=== PATIENT | female | born 1955 | race Caucasian/White ===

== ENCOUNTER 2017-06-13 12:47 | Outpatient (CLI) | payer OTHER ==
[~2017-06-13 12:47] MED LIST: GADOBUTROL 10 MMOL/10 ML VIAL ONE
[2017-06-13 13:15] LABS: CREATININE 0.9 mg/dL (0.4-1.0)
[2017-06-13] MEDS ORDERED: GADOBUTROL 10 MMOL/10 ML VIAL IVP ONE (14:22)
--- NOTE | 2017-06-13 15:20 | MRI Report ---
EXAM: MRI LUMBAR SPINE WITHOUT AND WITH CONTRAST EXAM DATE: 06/13/2017 02:53 PM. CLINICAL HISTORY: CERVICAL PAIN HX OF MASS, LUMBAR SPINE PAIN. COMPARISONS: None. TECHNIQUE: Multiplanar, multisequence T1-weighted and fluid-sensitive sequences of the lumbar spine f rom T12 to S1 before and after administration of intravenous contrast. IV contrast: 8 cc gadavist adm inistered, 2 cc wasted. Other: None. FINDINGS: Spinal Cord: The conus terminates at L1. No signal abnormality in the visualized spinal cord. Alignment: Normal. No scoliosis or spondylolisthesis. Bone Marrow: Transitional lumbosacral vertebra will be considered S1 with residual S1-S2 disk and ap pears fused to sacrum. No fracture or marrow edema. No abnormal bony enhancement. Disk Levels/Facets: T12-L1: Unremarkable. L1-L2: Small right paracentral protrusion indents sac but does not cause significant nerve root retro displacement or stenosis. Mild facet arthropathy. No foraminal stenoses. L2-L3: Small left paracentral protrusion with annular enhancement indents thecal sac with mild left L 3 retrodisplacement. Mild bilateral facet arthropathy. Mild left foraminal stenosis. L3-L4: Mild bilateral facet arthropathy. Minimal disk bulge. No stenosis. L4-L5: Mild disk bulge. T2 hyperintense posterior annular fissure with mild enhancement. Mild bilater al facet arthropathy. No central stenosis. [id number] bilateral foraminal stenoses. L5-S1: Mild disk bulge. Moderate bilateral facet arthropathy. Moderate left foraminal stenosis. Spinal Canal: No enhancing masses within the spinal canal. No epidural abscess. Musculature: Normal. No edema, abnormal enhancement, or fatty atrophy. Other: The visualized pelvic cavity is unremarkable. IMPRESSION: 1. Multilevel degenerative disk disease and facet arthropathy. 2. Small posterior annular fissures with enhancement at L2-L3 and L4-L5. 3. Small protrusions, right paracentral L1-L2 and left paracentral L2-L3. Mild left L3 retrodisplacem ent of the L2-L3 disk level. 4. Mild to moderate bilateral L4-L5 foraminal stenoses and a moderate left L5-S1 foraminal stenosis. Comment: The following findings are so common in adults without low back pain that while we report th eir presence, they must be interpreted with caution and in the context of the clinical situation. (Re ingrid Sanchez et al, Spine 2001) Prevalence of findings in patients without low back pain: Disk degeneration (any evidence): 92% Disk desiccation/T2 signal loss: 83% Disk height loss: 56% Disk bulge: 64% Disk protrusion: 32% Annular tear/high intensity zone: 38% [facility] Referring Provider Line: [phone] SITE ID: [id number]
--- NOTE | 2017-06-17 17:03 | MRI Report ---
EXAM: MRI CERVICAL SPINE WITHOUT AND WITH CONTRAST EXAM DATE: 06/13/2017 02:48 PM. CLINICAL HISTORY: Cervical pain, history of mass. Lumbar spine pain. COMPARISON: Accompanying MRI lumbar spine. There is a prior CT soft tissue neck exam from 02/10/2016. TECHNIQUE: Multiplanar, multisequence T1-weighted and fluid-sensitive sequences of the cervical spine before and after administration of intravenous contrast. IV contrast: 8 cc Gadavist given intravenou sly. Other: None. Findings: Relevant images are indicated (image number, series number). Again seen is a intradural extramedullary mass within the cervical canal at the C2-C3 level, seen pre viously is partially calcified hyperdense mass, on the MRI study this mass demonstrates homogenous en hancement (5, 901; 21, 1001) and measures 0.8 x 1.4 x 1.6 cm AP by transverse by sagittal, effaces th e left lateral recess, produces moderate, marked focal canal stenosis, appears to extend at least par tially into the left foraminal space. Previously, maximum dimension of the mass was at least 1.6 cm c raniocaudal, similar to the current study. No other masses are seen. There is no abnormal cervical co rd signal or suspicious marrow lesion. There are normal expected vascular flow voids of the partly visualized bilateral vertebral arteries. Limited evaluation posterior cranial fossa contents are unremarkable, circular tonsils are normally p ositioned. C1-C2: Including a lateral occipital, lateral axial articulation demonstrates no significant canal st enosis. C2-C3: Mild disk desiccation, posterior annular disk thinning. Again seen intradural extramedullary m ass posterior left parasagittal as described above. Moderate to marked canal stenosis, significant ef facement of the left foraminal space. No apparent significant right neural foraminal narrowing. C3-C4: Mild disk desiccation, minimal posterior disk bulge. Mild canal stenosis. Uncovertebral joint, posterior facet hypertrophic change with mild left, mild right neural foraminal narrowing. C4-C5: Moderate disk degenerative change, posterior broad-based disk osteophyte complex accentuated a t the foraminal spaces bilaterally. Moderate to marked canal stenosis. Uncovertebral joint, posterior facet hypertrophic change with moderate degenerative bilateral neural foramina narrowing right worse than left. C5-C6: Moderate disk degenerative change, small posterior broad-based disk osteophyte complex, modera te to marked canal stenosis. There is uncovertebral joint, posterior facet hypertrophic change with m oderate degenerative bilateral neural foramina narrowing. C6-C7: Mild to moderate disk degenerative change, left posterior parasagittal disk protrusion (6, 301 ), measures 0.4 x 0.6 x 0.6 cm AP by sagittal by transverse. There is partial effacement of the left lateral recess. There is at least moderate canal stenosis. There is uncovertebral joint, posterior fa cet hypertrophic change with moderate left, mild right neural foramina narrowing. C7-T1 through T1-T2, partly seen T2-T3 levels demonstrate only mild disk desiccation. Impressions: 1. Redemonstration of C2-C3 left posterior parasagittal intradural extra medullary mass, most likely representing meningioma, similar in size, appearance compared with CT soft tissue neck study 02/10/20 16, Max dimension 1.6 cm described, produces moderate marked focal canal stenosis as well as effaceme nt of the left lateral recess, may contribute a left C3 radiculopathy. No abnormal cervical cord sign al. Superimposed multilevel cervical spondylosis, pertinent degenerative levels below. 2. C3-C4: Mild degenerative canal stenosis. 3. C4-C5: Moderate to marked degenerative canal stenosis, moderate degenerative bilateral neural fora stephon narrowing right worse than left, may contribute a bilateral C5 radiculopathy. 4. C5-C6: Moderate to marked degenerative canal stenosis, moderate degenerative bilateral neural fora stephon narrowing may contribute a bilateral C6 radiculopathy. 5. C6-C7: Posterior left parasagittal disk protrusion, produces moderate canal stenosis, moderate deg enerative left neural foramina narrowing may contribute a left C7 radiculopathy. 6. Milder or no significant degenerative changes at the remaining cervical, upper thoracic spine leve ls as detailed. [facility] Referring Provider Line: [phone] SITE ID: [id number]
== END 2017-06-13 12:48 | disposition home or self-care (01) ==
LOC: DI 12:47
PROVIDERS: ATTEND Nurse Practitioner Family
DX: M51.26 Other intervertebral disc displacement, lumbar region (principal); M51.36 Other intervertebral disc degeneration, lumbar region; M47.896 Other spondylosis, lumbar region; M43.16 Spondylolisthesis, lumbar region; M50.31 Other cervical disc degeneration, high cervical region; M50.223 Other cervical disc displacement at C6-C7 level; M47.892 Other spondylosis, cervical region; M51.34 Other intervertebral disc degeneration, thoracic region
CPT/HCPCS: 36415; 72156; 72158; 82565; A9585

== ENCOUNTER 2017-08-14 15:12 | Outpatient (CLI) | payer OTHER ==
--- NOTE | 2017-08-14 23:58 | XRAY Report ---
EXAM: RIGHT TOE RADIOGRAPHY EXAM DATE: 08/14/2017 03:39 PM. CLINICAL HISTORY: RT GREAT TOE PAIN. COMPARISON: None. TECHNIQUE: 3 views. FINDINGS: Bones: Normal. No fracture or bone lesion. Joints: Mild right first metatarsophalangeal joint space narrowing as seen with mild osteoarthritis. No dislocation. Soft Tissues: Unremarkable. IMPRESSION: 1. No evidence for acute fracture. 2. Mild right first metatarsophalangeal osteoarthritis. [facility] Referring Provider Line: [phone] SITE ID: [id number]
== END 2017-08-14 15:13 | disposition home or self-care (01) ==
LOC: DI.S 15:12
PROVIDERS: ATTEND Nurse Practitioner Family
DX: M19.071 Primary osteoarthritis, right ankle and foot (principal)
CPT/HCPCS: 73660

== ENCOUNTER 2017-08-14 15:13 | Outpatient (CLI) | payer OTHER ==
--- NOTE | 2017-08-20 11:17 | Mammography Report ---
DIGITAL BILATERAL SCREENING MAMMOGRAM: 08/14/2017 CLINICAL INDICATION: A 62-year old with history of benign aspiration, for screening. COMPARISON: 03/2016, 03/2008. TECHNIQUE: Real-time scanning was performed with development representative static images obtained. FINDINGS: The breasts demonstrate scattered fibroglandular densities bilaterally. Coarse, typically benign calcifications are present. No suspicious masses, clustered microcalcifications, or regions of architectural distortion are identified. IMPRESSION: Benign findings. RECOMMENDATIONS: Routine annual screening unless otherwise clinically indicated. BIRADS 2 Benign findings STANDARD QUALIFYING STATEMENTS 1. This examination was reviewd with the aid of computer-Aided Detection (CAD). 2. A negative or benign imaging report should not delay biopsy if clinically suspicious findings are present. Consider surgical consultation if warranted. More than 5% of cancers are not identified by imaging. 3. Dense breasts may obscure an underlying neoplasm. TD: 08/15/2017 14:30 [email or web address]
== END 2017-08-14 15:14 | disposition home or self-care (01) ==
LOC: DI.S 15:13
PROVIDERS: ATTEND Nurse Practitioner Family
DX: Z12.31 Encounter for screening mammogram for malignant neoplasm of breast (principal)
CPT/HCPCS: 77067

== ENCOUNTER 2018-01-28 12:31 | Outpatient (CLI) | payer OTHER | END 2018-01-28 12:32 | disposition critical access hospital (66) | LOC: EMS 12:31 | PROVIDERS: ATTEND Surgery | DX: R41.82 Altered mental status, unspecified (principal); R26.81 Unsteadiness on feet | CPT/HCPCS: A0425; A0429 ==

== ENCOUNTER 2018-01-28 13:16 | Emergency (ER) | payer OTHER ==
[2018-01-28 13:54] LABS: BASOPHILS # (AUTO) 0.1 10^3/uL (0.0-0.1); BASOPHILS % (AUTO) 0.8 %; EOSINOPHILS # (AUTO) 0.1 10^3/uL (0.0-0.7); EOSINOPHILS % (AUTO) 0.9 %; HGB - HEMOGLOBIN 14.7 g/dL (12.0-16.0); LYMPHOCYTES # (AUTO) 2.1 10^3/uL (1.5-3.5); LYMPHOCYTES % (AUTO) 19.1 %; MEAN CORPUSCULAR HEMOGLOBIN 31.8 pg (27.0-31.0); MEAN CORPUSCULAR HGB CONC 33.1 g/dL (32.0-36.0); MEAN CORPUSCULAR VOLUME 95.8 fL (81.0-99.0); MEAN PLATELET VOLUME 7.6 fL (7.9-10.8); MONOCYTES # (AUTO) 0.9 10^3/uL (0.0-1.0); MONOCYTES % (AUTO) 7.8 %; NEUTROPHILS # (AUTO) 7.9 10^3/uL (1.5-6.6); NEUTROPHILS % (AUTO) 71.4 %; PLT - PLATELET COUNT 247 10^3/uL (130-450); RED BLOOD COUNT 4.63 10^6/uL (4.20-5.40); RED CELL DISTRIBUTION WIDTH 12.9 % (12.0-15.0)
[2018-01-28 14:03] LABS: ALBUMIN 4.4 g/dL (3.2-5.5); ALBUMIN/GLOBULIN RATIO 1.5 (1.0-2.2); ALKALINE PHOSPHATASE 71 IU/L (42-121); ALT ALANINE AMINOTRANSFERASE 15 IU/L (10-60); AST ASPARTATE AMINOTRANSFERASE 17 IU/L (10-42); BILIRUBIN,TOTAL 0.6 mg/dL (0.2-1.0); BUN - BLOOD UREA NITROGEN 15 mg/dL (6-20); CARBON DIOXIDE - CO2 29 mmol/L (21-32); CHLORIDE 103 mmol/L (101-111); CREATININE 0.8 mg/dL (0.4-1.0); GFR - MDRD 73 (>89); GLUCOSE 100 mg/dL (70-100); LIPASE 35 U/L (22-51); SALICYLATE < 6.0 mg/dL; SODIUM 138 mmol/L (135-145); TOTAL PROTEIN 7.4 g/dL (6.7-8.2)
[2018-01-28 14:04] LABS: ACETAMINOPHEN < 10 ug/mL (10-30)
--- NOTE | 2018-01-28 14:14 | ED Physician Documentation ---
History of Present Illness - Stated complaint Stated Complaint: AMS - Chief complaint Chief Complaint: MHE - Additonal information Additional information: pt referred to ED by PMD and her counselor 2/2 AMS and visual hallucinations was driving to pharmacy and developed visual hallucinations described as "a detailed movie in front of my eyes" "a colored woven map" and "shifting colors" no aud hallucinations also had some muscle tesnion / tremors noted by counselor no hx of same except for one time after some sort of drug use as a teenager takes TBD for chronic pain 2/2 spinal tumor - got a new TBD fill and just took first pill from that bottle today prior to sx no EtOh/wdrawal no drugs was en route to pharm for xanax refill when this occured - but not out of xanax no missed doses no fever no BARBOSA no [employer]VOCATE no CP no AP no cough NVD sx are improving Review of Systems Constitutional: denies: Fever, Chills Cardiac: denies: Chest pain / pressure Respiratory: denies: Dyspnea GI: denies: Abdominal Pain, Nausea, Vomiting, Diarrhea Musculoskeletal: denies: Neck pain Neurologic: denies: Headache Psychiatric: reports: Hallucinations Immunocompromised: denies: Immunocompromised PD PAST MEDICAL HISTORY - Past Medical History Cardiovascular: High cholesterol GI: GERD Psych: Depression - Past Surgical History Past Surgical History: Yes Ortho: Knee replacement - Present Medications Home Medications: Ambulatory Orders Medication Instructions Recorded Confirmed Omeprazole [Prilosec] 40 mg PO DAILY 05/22/13 08/28/16 Simvastatin [Zocor] 20 mg PO HS 05/22/13 08/28/16 Trazodone HCl 300 mg PO HS 05/22/13 08/28/16 Venlafaxine ER [Effexor ER] 300 mg PO DAILY 05/22/13 08/28/16 Albuterol Sulfate [Proair Hfa 1 inh INH BID 02/11/16 08/28/16 Inhaler] Docusate Sodium 250Mg Capsule 2 tab PO DAILY 02/11/16 08/28/16 [Colace] Alprazolam [Xanax] 1 mg PO DAILY 01/28/18 01/28/18 - Allergies Allergies/Adverse Reactions: Allergies Allergy/AdvReac Type Severity Reaction Status Date / Time citalopram Allergy Respiratory Verified 01/28/18 13:27 topiramate [From Topamax] Allergy Respiratory Verified 01/28/18 13:27 Sulfa (Sulfonamide AdvReac Nausea Verified 01/28/18 13:27 Antibiotics) - Social History Does the pt smoke?: Yes Smoking Status: Current every day smoker Does the pt drink ETOH?: No Does the pt have substance abuse?: No - Immunizations Immunizations are current?: No Immunizations: TDAP >10years/unknown PD ED PE NORMAL - Vitals Vital signs reviewed: Yes - General General: Alert and oriented X 3 - HEENT HEENT: PERRL - Neck Neck: Supple, no meningeal sign - Cardiac Cardiac: RRR - Respiratory Respiratory: No respiratory distress - Abdomen Abdomen: Soft, Non tender - Neuro Neuro: Alert and oriented X 3, special events assistant 2-12 intact, No motor deficit, No sensory deficit, Normal speech Eye Opening: Spontaneous Motor: Obeys Commands Verbal: Oriented GCS Score: 15 Results - Vitals Vitals: Vital Signs - 24 hr 01/28/18 01/28/18 13:18 16:08 Temperature 36.4 C L Heart Rate 73 86 Respiratory 20 16 Rate Blood Pressure 153/72 H 116/74 O2 Saturation 98 98 Oxygen O2 Source Room air - Labs Labs: Laboratory Tests 01/28/18 01/28/18 01/28/18 13:44 13:44 14:04 WBC 11.0 H RBC 4.63 Hgb 14.7 Hct 44.4 MCV 95.8 MCH 31.8 H MCHC 33.1 RDW 12.9 Plt Count 247 MPV 7.6 L Neut # 7.9 H Lymph # 2.1 Christian # 0.9 Eos # 0.1 Baso # 0.1 Absolute Nucleated RBC 0.00 Nucleated RBC % 0.0 Sodium 138 Potassium 3.8 Chloride 103 Carbon Dioxide 29 Anion Gap 6.0 BUN 15 Creatinine 0.8 Estimated GFR (MDRD) 73 L Glucose 100 Calcium 9.0 Total Bilirubin 0.6 AST 17 ALT 15 Alkaline Phosphatase 71 Ammonia 9.0 Total Protein 7.4 Albumin 4.4 Globulin 3.0 Albumin/Globulin Ratio 1.5 Lipase 35 Urine Color Urine Clarity Urine pH Ur Specific [place] Urine Protein Urine Glucose (UA) Urine Ketones Urine Occult Blood Urine Nitrite Urine Bilirubin Urine Urobilinogen Ur Leukocyte Esterase Ur Microscopic Review Urine Culture Comments Salicylates < 6.0 Urine Opiates Screen Ur Oxycodone Screen Urine Methadone Screen Ur Propoxyphene Screen Acetaminophen < 10 L Ur Barbiturates Screen Ur Tricyclics Screen Ur Phencyclidine Scrn Ur Amphetamine Screen U Methamphetamines Scrn U Benzodiazepines Scrn Urine Cocaine Screen U Cannabinoids Screen Ethyl Alcohol < 5.0 01/28/18 14:34 WBC RBC Hgb Hct MCV MCH MCHC RDW Plt Count MPV Neut # Lymph # Christian # Eos # Baso # Absolute Nucleated RBC Nucleated RBC % Sodium Potassium Chloride Carbon Dioxide Anion Gap BUN Creatinine Estimated GFR (MDRD) Glucose Calcium Total Bilirubin AST ALT Alkaline Phosphatase Ammonia Total Protein Albumin Globulin Albumin/Globulin Ratio Lipase Urine Color YELLOW Urine Clarity CLEAR Urine pH 5.5 Ur Specific [place] 1.010 Urine Protein NEGATIVE Urine Glucose (UA) NEGATIVE Urine Ketones NEGATIVE Urine Occult Blood NEGATIVE Urine Nitrite NEGATIVE Urine Bilirubin NEGATIVE Urine Urobilinogen 0.2 (NORMAL) Ur Leukocyte Esterase NEGATIVE Ur Microscopic Review NOT INDICATED Urine Culture Comments NOT INDICATED Salicylates Urine Opiates Screen NEGATIVE Ur Oxycodone Screen NEGATIVE Urine Methadone Screen NEGATIVE Ur Propoxyphene Screen NEGATIVE Acetaminophen Ur Barbiturates Screen NEGATIVE Ur Tricyclics Screen NEGATIVE Ur Phencyclidine Scrn NEGATIVE Ur Amphetamine Screen NEGATIVE U Methamphetamines Scrn NEGATIVE U Benzodiazepines Scrn POSITIVE H Urine Cocaine Screen NEGATIVE U Cannabinoids Screen POSITIVE H Ethyl Alcohol - Rads (name of study) [facility] Radiology: See rad report (no acute) Departure - Departure Disposition: 01 Home, Self Care Clinical Impression: Mental status alteration Qualifiers: Altered mental status type: transient alteration of awareness Qualified Code(s) : R40.4 - Transient alteration of awareness Adverse drug effect Qualifiers: Encounter type: initial encounter Qualified Code(s): T88.7XXA - Unspecified adverse effect of drug or medicament, initial encounter Condition: Good Comments: Your CT scan and labs were all fine. It is possible that your symptoms were a reaction the the new CBD capsules you took this morning. Since you are doing better now, i think it is safe for your to go home. Please follow up with your PMD for a recheck this week. Return if worse again
[2018-01-28 14:36] LABS: MUDS CUTOFF CONCENTRATIONS CUTOFF CONC BELOW:
--- NOTE | 2018-01-28 14:41 | CT Report ---
EXAM: CT HEAD EXAM DATE: 01/28/2018 02:32 PM. CLINICAL HISTORY: Confusion COMPARISON: None. TECHNIQUE: Multiaxial CT images were obtained from the foramen magnum to the vertex. Reformats: Coron al. IV contrast: None. In accordance with CT protocol optimization, one or more of the following dose reduction techniques w ere utilized for this exam: automated exposure control, adjustment of mA and/or KV based on patient s ize, or use of iterative reconstructive technique. FINDINGS: Parenchyma: No intraparenchymal hemorrhage. No evidence of mass, midline shift, or CT findings of inf arction. Diallo-white differentiation is distinct. Extraaxial Spaces: Normal for age. No subdural or epidural collections identified. Ventricles: Normal in size and position. Sinuses and Orbits: Imaged paranasal sinuses, orbits, and mastoids show no significant abnormality. Bones: No evidence of fracture or calvarial defect. Other: None. IMPRESSION: No acute intracranial CT abnormality. [facility] Referring Provider Line: [phone] SITE ID: [id number]
[2018-01-28 14:52] LABS: BILIRUBIN,URINE NEGATIVE (NEGATIVE); GLUCOSE, URINE (UA) NEGATIVE (NEGATIVE); KETONES,URINE (UA) NEGATIVE (NEGATIVE); LEUKOCYTE ESTERASE, URINE NEGATIVE (NEGATIVE); NITRITE,URINE NEGATIVE (NEGATIVE); OCCULT BLOOD,URINE NEGATIVE (NEGATIVE); PH,URINE 5.5 PH (5.0-7.5); PROTEIN,URINE NEGATIVE (NEGATIVE); UROBILINOGEN,URINE 0.2 (NORMAL) E.U./dL (NORMAL)
[2018-01-28 14:58] LABS: CLARITY,URINE CLEAR (CLEAR)
[2018-01-28 15:04] LABS: AMPHETAMINE SCREEN,URINE NEGATIVE (NEGATIVE); BENZODIAZEPINES SCREEN, URINE POSITIVE (NEGATIVE); COCAINE SCREEN URINE NEGATIVE (NEGATIVE); METHADONE SCREEN, URINE NEGATIVE (NEGATIVE); METHAMPHETAMINES SCREEN, URINE NEGATIVE (NEGATIVE); OPIATE SCREEN, URINE NEGATIVE (NEGATIVE); OXYCODONE SCREEN, URINE NEGATIVE (NEGATIVE); PROPOXYPHENE SCREEN, URINE NEGATIVE (NEGATIVE); TRICYCLIC ANTIDEPRESSANT,URINE NEGATIVE (NEGATIVE)
[2018-01-28 16:09] VITALS: BP 116/74
== END 2018-01-28 16:47 | disposition home or self-care (01) ==
LOC: EDUNIT# → ED 13:16
DX: R40.4 Transient alteration of awareness (principal); T50.905A Adverse effect of unspecified drugs, medicaments and biological substances, initial encounter; E78.00 Pure hypercholesterolemia, unspecified; Z96.659 Presence of unspecified artificial knee joint
CPT/HCPCS: 36415; 70450; 80053; 80306; 80307; 80320; 80329; 81001; 81003; 82140; 83690; 85025; 87086; 99283

== ENCOUNTER 2018-05-22 07:20 | Outpatient (CLI) | payer OTHER ==
--- NOTE | 2018-05-22 13:52 | XRAY Report ---
Reason: Right Shoulder pain Procedure Date: 05/22/2018 Accession Number: [id number] / [id number] Procedure: XR - Shoulder 3 View RT CPT Code: FULL RESULT: EXAM: RIGHT SHOULDER RADIOGRAPHY EXAM DATE: 05/22/2018 10:05 AM. CLINICAL HISTORY: Right Shoulder pain. COMPARISON: None. TECHNIQUE: 3 views. FINDINGS: Bones: Mild bony demineralization. No acute fracture. Chronic change along the greater tuberosity with tiny adjacent calcification. Joints: Moderate acromioclavicular and mild glenohumeral degenerative change. Soft tissues: The visualized lungs appear clear. IMPRESSION: 1. No acute fracture or dislocation identified. 2. Moderate acromioclavicular joint arthropathy. Mild left humeral degenerative change. Chronic change also noted along the greater curiosity of the humerus with adjacent tiny calcification that may be rotator cuff. [facility]
--- NOTE | 2018-05-22 13:55 | XRAY Report ---
Reason: C-spine pain Procedure Date: 05/22/2018 Accession Number: [id number] / [id number] Procedure: XR - Cervical Spine 2 View CPT Code: FULL RESULT: EXAM: CERVICAL SPINE RADIOGRAPHY EXAM DATE: 05/22/2018 10:05 AM. CLINICAL HISTORY: C-spine pain. COMPARISONS: 05/22/2018. TECHNIQUE: 3 views. FINDINGS: Alignment: No spondylolisthesis or scoliosis. Bones: Vertebral body heights appear maintained. No acute fracture identified. Disks: Multilevel degenerative disk disease. Disk space narrowing appears moderate at C4-C5, C5-C6, and more mild at other levels. Facets: Well aligned with multilevel facet arthropathy. Soft Tissues: Posterior ligamentous calcification. No prevertebral soft tissue swelling. Lung apices appear clear. IMPRESSION: 1. No acute cervical spine fracture or spondylolisthesis identified. 2. Multilevel degenerative disk disease and facet arthropathy again noted. [facility]
--- NOTE | 2018-05-22 18:13 | MRI Report ---
Reason: NECK PAIN, SPINAL CORD NEOPLASM RT SHOULDER PAIN Procedure Date: 05/22/2018 Accession Number: [id number] / [id number] Procedure: MRI - Cervical Spine W/O CPT Code: FULL RESULT: EXAM: MRI CERVICAL SPINE WITHOUT CONTRAST EXAM DATE: 05/22/2018 08:11 AM. 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 COMPARISONS: CERVICAL SPINE W/WO 06/13/2017 1:00 PM. TECHNIQUE: Multiplanar, multisequence T1-weighted and fluid-sensitive sequences of the cervical spine without contrast. Other: None. FINDINGS: Neurologic Structures: Cervical spinal cord is normal in signal and caliber. See below for description of extra medullary, intradural lesion at C2-C3. Visualized contents of the posterior fossa are unremarkable. Alignment: No scoliosis or spondylolisthesis. Bone Marrow: No gross fractures or bone lesions. No marrow edema. Interspace Levels/Facets: C2-C3: Extra medullary, intradural mass is again demonstrated in the left lateral recess and neural foramen this measures approximately 11 mm AP by 16 mm transverse on T2-weighted images, previously 10 x 14 mm on the 06/13/2017 exam. Postcontrast images on the prior exam demonstrate enhancement with extension through the neural foramen. Mass lesion contacts and mildly deforms the left lateral spinal cord and results in moderate narrowing of the central canal overall, unchanged. No significant narrowing of the bony central canal or neural foramina. C3-C4: Small broad-based disk bulge results in mild narrowing of the central canal, unchanged. No significant neural foraminal narrowing. C4-C5: There is mild disk height loss. Broad-based disk bulge and mild thickening of the ligamentum flavum result in moderate narrowing of the central canal with near effacement of the ventral and dorsal CSF spaces, unchanged. Uncovertebral joint hypertrophy results in mild to moderate narrowing of the neural foramina bilaterally, unchanged. C5-C6: There is moderate disk height loss. Posterior disk osteophyte complex in mild focal thickening of the ligamentum flavum result in moderate narrowing of the central canal with near effacement of the ventral and dorsal CSF spaces, unchanged. Uncovertebral joint hypertrophy results in mild to moderate narrowing of the neural foramina bilaterally, unchanged. C6-C7: Broad-based disk bulge results in mild narrowing of the central canal, unchanged. Uncovertebral joint hypertrophy results in mild narrowing of the left neural foramen, unchanged. C7-T1: Unremarkable. Musculature: Normal. No edema or fatty atrophy. Other: The paravertebral and prevertebral soft tissues are normal. IMPRESSION: 1. Extra medullary, intradural mass in the left lateral recess and neural foramen of C2-C3, stable or minimally increased in size compared to the 06/13/2017 exam. Appearance favors nerve sheath tumor. 2. Multilevel degenerative changes are stable and result in the following: - C3-C4: Mild narrowing of the central canal. - C4-C5: Moderate narrowing of the central canal with near effacement of the CSF spaces. Mild to moderate narrowing of the neural foramina bilaterally. - C5-C6: Moderate narrowing of the central canal with near effacement of the CSF spaces. Mild to moderate narrowing of the neural foramina bilaterally. - C6-C7: Mild narrowing of the central canal. Mild narrowing of the left neural foramen. [facility]
--- NOTE | 2018-05-22 18:29 | MRI Report ---
Reason: NECK PAIN,SPINAL CORD NEOPLASM RT SHOULDER PAIN Procedure Date: 05/22/2018 Accession Number: [id number] / [id number] Procedure: MRI - Lumbar Spine W/O CPT Code: FULL RESULT: EXAM: MRI LUMBAR SPINE WITHOUT CONTRAST EXAM DATE: 05/22/2018 08:11 AM. CLINICAL HISTORY: 63-year-old woman with low and mid back pain. COMPARISON: LUMBAR SPINE W/WO 06/13/2017 2:00 PM. TECHNIQUE: Multiplanar, multisequence T1-weighted and fluid-sensitive sequences of the lumbar spine from T12 to S1 without contrast. Other: None. FINDINGS: Spinal Canal: The conus terminates at L1-L2. The conus medullaris and cauda equina are unremarkable. Alignment: There is mild convex left scoliosis centered at L2-L3 with mild compensatory convex right curvature centered at L5-S1. No significant spondylolisthesis. Bone Marrow: Five [id number] lumbar vertebral bodies are present. No gross fractures or bone lesions. Trace degenerative end plate edema is present at L5-S1, similar to the prior exam. Disk Levels/Facets: T12-L1: Unremarkable. L1-L2: There is mild disk desiccation and height loss. Broad-based right paracentral disk protrusion is new compared to the 2017 exam and results in mild narrowing of the central canal overall with moderate to severe narrowing of the right lateral recess. No significant narrowing of the neural foramina. L2-L3: There is mild disk desiccation and height loss. Left paracentral disk extrusion is new or significantly increased in size compared to the 2017 exam, now measuring approximately 7 mm AP by 13 mm transverse and 13 mm craniocaudal, largely caudal to the disk space. The extrusion effaces the left lateral recess. The passing left L3 nerve roots may be compromised. The extrusion results in mild to moderate narrowing of the central canal overall, significantly progressed. No significant neural foraminal narrowing. L3-L4: There is mild disk desiccation. Facet hypertrophy results in mild narrowing of the central canal, unchanged. No significant neural foraminal narrowing. L4-L5: There is disk desiccation and moderate height loss. Facet hypertrophy results in mild narrowing of the central canal, unchanged. Facet hypertrophy and disk in the subarticular spaces result in mild to moderate narrowing of the neural foramina bilaterally, unchanged. L5-S1: There is disk desiccation and moderate height loss. No significant central canal stenosis. Disk osteophyte complex in the subarticular spaces and facet hypertrophy result in moderate to severe narrowing of the left neural foramen and minimal narrowing on the right, unchanged. Musculature: No edema. There is mild fatty atrophy of the left multifidus muscle caudal to L5-S1. Other: The partially visualized retroperitoneum is unremarkable. IMPRESSION: 1. L2-L3: Left paracentral disk extrusion, new or significantly increased in size compared to the 06/13/2017 exam. Extrusion effaces the left lateral recess. The passing left L3 nerve roots may be compromised. There is mild to moderate narrowing of the central canal overall, progressed. 2. L1-L2: Right paracentral disk protrusion, new compared to 2017 exam. This results in mild narrowing of the central canal overall with moderate to severe narrowing of the right lateral recess. 3. Additional degenerative changes are stable compared to the 2017 exam and result in the following: - L3-L4: Mild narrowing of the central canal. - L4-L5: Mild narrowing of the central canal. Mild to moderate narrowing of the neural foramina bilaterally. - L5-S1: Moderate to severe narrowing of the left neural foramen. Comment: The following findings are so common in adults without low back pain that while we report their presence, they must be interpreted with caution and in the context of the clinical situation. (Reference Magdalenovik et al, Spine 2001) Prevalence of findings in patients without low back pain: Disk degeneration (any evidence): 92% Disk desiccation/T2 signal loss: 83% Disk height loss: 56% Disk bulge: 64% Disk protrusion: 32% Annular tear/high intensity zone: 38% RADIA
== END 2018-05-22 07:21 | disposition home or self-care (01) ==
LOC: DI 07:20
PROVIDERS: ATTEND Nurse Practitioner Family
DX: M50.321 Other cervical disc degeneration at C4-C5 level (principal); M48.02 Spinal stenosis, cervical region; M51.26 Other intervertebral disc displacement, lumbar region; M48.061 Spinal stenosis, lumbar region without neurogenic claudication; M51.86 Other intervertebral disc disorders, lumbar region; M25.78 Osteophyte, vertebrae; M19.011 Primary osteoarthritis, right shoulder; D49.7 Neoplasm of unspecified behavior of endocrine glands and other parts of nervous system
CPT/HCPCS: 72040; 72141; 72148

== ENCOUNTER 2018-06-05 13:58 | Emergency (ER) | payer OTHER ==
[2018-06-05 14:34] LABS: BILIRUBIN,URINE NEGATIVE (NEGATIVE); GLUCOSE, URINE (UA) NEGATIVE (NEGATIVE); KETONES,URINE (UA) NEGATIVE (NEGATIVE); LEUKOCYTE ESTERASE, URINE NEGATIVE (NEGATIVE); NITRITE,URINE NEGATIVE (NEGATIVE); OCCULT BLOOD,URINE NEGATIVE (NEGATIVE); PH,URINE 6.5 PH (5.0-7.5); PROTEIN,URINE NEGATIVE (NEGATIVE); UROBILINOGEN,URINE 0.2 (NORMAL) E.U./dL (NORMAL)
[2018-06-05 14:35] LABS: CLARITY,URINE CLEAR (CLEAR)
[2018-06-05] MEDS ORDERED: SODIUM CHLORIDE 0.9% 1,000 ML IV ONE (15:29)
--- NOTE | 2018-06-05 15:34 | ED Physician Documentation ---
History of Present Illness - Stated complaint Stated Complaint: WEAKNESS/ABD PX - Chief complaint Chief Complaint: Cardiac - History obtained from History obtained from: Patient - History of Present Illness Timing: How many days ago (several) Pain level max: 5 Pain level now: 0 Improved by: rest Worsened by: exertion - Additonal information Additional information: Patient is a 63-year-old female who presents to the emergency department complaining that she has been feeling weak for the past several days. States she is feeling more confused than usual. Like her mind is not working as fast as usual. She states that her body feels heavy. Smokes 2 packs of cigarettes per day. Does not use inhalers. Denies any fevers, cough and congestion. States that she had epigastric pain that radiated into her chest last night and felt like heartburn. This is resolved at this time. She has had no nausea or vomiting. No diarrhea. No dysuria. Review of Systems Ten Systems: 10 systems reviewed and negative Constitutional: denies: Fever, Chills Ears: denies: Ear pain Nose: denies: Rhinorrhea / runny nose, Congestion Throat: denies: Sore throat Cardiac: denies: Chest pain / pressure Respiratory: denies: Cough, Wheezing GI: denies: Nausea, Vomiting, Diarrhea, Hematemesis, Bloody / black stool : denies: Dysuria Skin: denies: Rash Musculoskeletal: denies: Neck pain, Back pain Neurologic: reports: Generalized weakness. denies: Focal weakness, Seizure, Headache PD PAST MEDICAL HISTORY - Past Medical History Cardiovascular: High cholesterol GI: GERD Psych: Depression - Past Surgical History Past Surgical History: Yes Ortho: Knee replacement - Present Medications Home Medications: Ambulatory Orders Medication Instructions Recorded Confirmed Omeprazole [Prilosec] 40 mg PO DAILY 05/22/13 08/28/16 Simvastatin [Zocor] 20 mg PO HS 05/22/13 08/28/16 Trazodone HCl 300 mg PO HS 05/22/13 08/28/16 Venlafaxine ER [Effexor ER] 300 mg PO DAILY 05/22/13 08/28/16 Albuterol Sulfate [Proair Hfa 1 inh INH BID 02/11/16 08/28/16 Inhaler] Docusate Sodium 250Mg Capsule 2 tab PO DAILY 02/11/16 08/28/16 [Colace] Alprazolam [Xanax] 1 mg PO DAILY 01/28/18 01/28/18 - Allergies Allergies/Adverse Reactions: Allergies Allergy/AdvReac Type Severity Reaction Status Date / Time citalopram Allergy Respiratory Verified 06/05/18 14:17 topiramate [From Topamax] Allergy Respiratory Verified 06/05/18 14:17 Sulfa (Sulfonamide AdvReac Nausea Verified 06/05/18 14:17 Antibiotics) - Social History Does the pt smoke?: Yes Smoking Status: Current every day smoker Does the pt drink ETOH?: No Does the pt have substance abuse?: No - Immunizations Immunizations are current?: No Immunizations: TDAP >10years/unknown PD ED PE NORMAL - Vitals Vital signs reviewed: Yes - General General: Alert and oriented X 3, No acute distress, Well developed/nourished - HEENT HEENT: PERRL, Pharynx benign, Other (dry lips) - Neck Neck: Supple, no meningeal sign - Cardiac Cardiac: RRR, No murmur, Strong equal pulses - Respiratory Respiratory: No respiratory distress, Clear bilaterally - Abdomen Abdomen: Soft, Non tender, Non distended - Back Back: No CVA TTP, No spinal TTP - Derm Derm: Warm and dry, No rash - Extremities Extremities: No edema, No calf tenderness / cord - Neuro Neuro: Alert and oriented X 3, 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, No motor deficit, No sensory deficit, Normal speech Eye Opening: Spontaneous Motor: Obeys Commands Verbal: Oriented GCS Score: 15 - Psych Psych: Normal mood, Normal affect Results - Vitals Vitals: Vital Signs - 24 hr 06/05/18 14:11 Temperature 36.7 C Heart Rate 72 Respiratory 18 Rate Blood Pressure 148/70 H O2 Saturation 100 Oxygen O2 Source Room air - EKG (time done) 1416 Rate: Rate (enter#) (62) Rhythm: NSR [place]: Normal Intervals: Normal IN QRS: Normal Ischemia: Normal ST segments - Labs Labs: Laboratory Tests 06/05/18 14:25 Urine Color YELLOW Urine Clarity CLEAR Urine pH 6.5 Ur Specific [place] 1.010 Urine Protein NEGATIVE Urine Glucose (UA) NEGATIVE Urine Ketones NEGATIVE Urine Occult Blood NEGATIVE Urine Nitrite NEGATIVE Urine Bilirubin NEGATIVE Urine Urobilinogen 0.2 (NORMAL) Ur Leukocyte Esterase NEGATIVE Ur Microscopic Review NOT INDICATED Urine Culture Comments NOT INDICATED - Rads (name of study) cxr Radiology: Prelim report reviewed, EMP read contemporaneously, See rad report (no acute disease) PD MEDICAL DECISION MAKING - ED course Complexity details: reviewed results, re-evaluated patient, considered differential, d/w patient ED course: Patient is a 63-year-old female who complains of weakness, chest pain last night and her head feeling foggy today. She feels better after IV fluids. No focal neurological deficits. No headache. No loss of consciousness. No altered mental status here. No fevers. No acute laboratory findings. Will have her follow-up with her doctor for further care. Patient is ambulating with a steady gait in the emergency department. Asymptomatic here patient counseled regarding signs and symptoms for which I believe and urgent re-evaluation would be necessary. Patient with good understanding of and agreement to plan and is comfortable going home at this time This document was made in part using voice recognition software. While efforts are made to proofread this document, sound alike and grammatical errors may occur. - Sepsis Event Vital Signs: Vital Signs - 24 hr 06/05/18 14:11 Temperature 36.7 C Heart Rate 72 Respiratory 18 Rate Blood Pressure 148/70 H O2 Saturation 100 Oxygen O2 Source Room air Departure - Departure Disposition: Home, Self Care Clinical Impression: Weakness Chest pain Qualifiers: Chest pain type: unspecified Qualified Code(s): R07.9 - Chest pain, unspecified Condition: Good Instructions: ED Chest Pain Atypical Unkn Cause, ED Weakness UKO Follow-Up: JARRED RIGGINS ARNP [Primary Care Provider] - Within 1 week Comments: Return if you worsen. The cause of your symptoms is unclear today. Your laboratory testing is normal as well as your x-ray and your EKG. Follow-up with your doctor for further care
[2018-06-05 16:03] LABS: BASOPHILS # (AUTO) 0.1 10^3/uL (0.0-0.1); BASOPHILS % (AUTO) 0.6 %; EOSINOPHILS # (AUTO) 0.1 10^3/uL (0.0-0.7); EOSINOPHILS % (AUTO) 0.6 %; HGB - HEMOGLOBIN 14.2 g/dL (12.0-16.0); LYMPHOCYTES # (AUTO) 1.8 10^3/uL (1.5-3.5); LYMPHOCYTES % (AUTO) 20.7 %; MEAN CORPUSCULAR HEMOGLOBIN 32.5 pg (27.0-31.0); MEAN CORPUSCULAR HGB CONC 33.8 g/dL (32.0-36.0); MEAN CORPUSCULAR VOLUME 96.1 fL (81.0-99.0); MEAN PLATELET VOLUME 7.6 fL (7.9-10.8); MONOCYTES # (AUTO) 0.6 10^3/uL (0.0-1.0); MONOCYTES % (AUTO) 7.1 %; NEUTROPHILS # (AUTO) 6.3 10^3/uL (1.5-6.6); PLT - PLATELET COUNT 221 10^3/uL (130-450); RED BLOOD COUNT 4.38 10^6/uL (4.20-5.40); RED CELL DISTRIBUTION WIDTH 13.3 % (12.0-15.0); WHITE BLOOD COUNT 8.9 x10^3/uL (4.8-10.8)
[2018-06-05 16:18] LABS: ALBUMIN 4.2 g/dL (3.2-5.5); ALBUMIN/GLOBULIN RATIO 1.5 (1.0-2.2); BILIRUBIN,TOTAL 0.5 mg/dL (0.2-1.0); CALCIUM 8.6 mg/dL (8.5-10.3)
--- NOTE | 2018-06-05 16:30 | XRAY Report ---
Reason: chest pain Procedure Date: 06/05/2018 Accession Number: [id number] / [id number] Procedure: XR - Chest 1 View X-Ray CPT Code: 22811 FULL RESULT: EXAM: CHEST RADIOGRAPHY EXAM DATE: 06/05/2018 04:16 PM. CLINICAL HISTORY: Chest pain. COMPARISON: XR CHEST PA AND LAT 10/17/2010 5:10 PM. TECHNIQUE: 1 view. FINDINGS: Lungs/Pleura: No focal opacities evident. No pleural effusion. No pneumothorax. Mediastinum: Within exam limitations, the cardiomediastinal contour is normal. Other: None. IMPRESSION: No acute intrathoracic plain film abnormality. RADIA
[2018-06-05 16:50] VITALS: BP 145/83
== END 2018-06-05 16:52 | disposition home or self-care (01) ==
LOC: ED 13:58
DX: R53.1 Weakness (principal); R07.9 Chest pain, unspecified; F17.200 Nicotine dependence, unspecified, uncomplicated
CPT/HCPCS: 36415; 71045; 80053; 81001; 81003; 83690; 84484; 85025; 87086; 93005; 99284

== ENCOUNTER 2018-08-09 15:44 | Outpatient (CLI) | payer OTHER | END 2018-08-09 15:45 | disposition short-term general hospital (02) | LOC: EMS 15:44 | PROVIDERS: ATTEND Surgery | DX: M54.2 Cervicalgia (principal); R53.1 Weakness; R14.0 Abdominal distension (gaseous) | CPT/HCPCS: A0425; A0427 ==

== ENCOUNTER 2018-08-14 12:14 | Emergency (ER) | payer OTHER ==
--- NOTE | 2018-08-14 13:00 | ED Physician Documentation ---
History of Present Illness - Stated complaint Stated Complaint: POST SURG COMPLICATION - Chief complaint Chief Complaint: General - History obtained from History obtained from: Patient - History of Present Illness Timing: Other (She had spinal surgery on her neck about 9 days ago. Her postoperative course was complicated by uncontrolled pain and constipation. She was readmitted to [facility] and discharged a few days ago. She had urinary retention necessitating a few days worth of Issa catheter placement. She no longer has urinary retention but now has urinary frequency and incontinence since last night without flank pain or fevers.) Review of Systems Constitutional: denies: Fever, Chills GI: reports: Constipation. denies: Abdominal Pain, Nausea, Vomiting : reports: Dysuria, Frequency PD PAST MEDICAL HISTORY - Past Medical History Cardiovascular: High cholesterol GI: GERD Psych: Depression Musculoskeletal: Chronic back pain, Other - Past Surgical History Past Surgical History: Yes Ortho: Knee replacement - Present Medications Home Medications: Ambulatory Orders Medication Instructions Recorded Confirmed Omeprazole [Prilosec] 40 mg PO DAILY 05/22/13 08/28/16 Simvastatin [Zocor] 20 mg PO HS 05/22/13 08/28/16 Trazodone HCl 300 mg PO HS 05/22/13 08/28/16 Venlafaxine ER [Effexor ER] 300 mg PO DAILY 05/22/13 08/28/16 Docusate Sodium 250Mg Capsule 2 tab PO DAILY 02/11/16 08/28/16 [Colace] Alprazolam [Xanax] 1 mg PO DAILY 01/28/18 01/28/18 Cannabidiol (Cbd) Extract 08/14/18 [Epidiolex] Ciprofloxacin [Cipro] 250 mg PO Q12H #10 tablet 08/14/18 HYDROmorphone [Dilaudid] 08/14/18 Lactulose [Constulose] 10 gm PO TID PRN #300 ml 08/14/18 Perphenazine 08/14/18 Prochlorperazine [Compazine] 08/14/18 - Allergies Allergies/Adverse Reactions: Allergies Allergy/AdvReac Type Severity Reaction Status Date / Time citalopram Allergy Respiratory Verified 08/14/18 12:24 topiramate [From Topamax] Allergy Respiratory Verified 08/14/18 12:24 Sulfa (Sulfonamide AdvReac Nausea Verified 12/14/18 12:24 Antibiotics) - Social History Does the pt smoke?: Yes Smoking Status: Current every day smoker Does the pt drink ETOH?: No Does the pt have substance abuse?: No - Immunizations Immunizations are current?: No Immunizations: TDAP >10years/unknown PD ED PE NORMAL - Vitals Vital signs reviewed: Yes - General General: Alert and oriented X 3, No acute distress - Neck Neck: Other (In a soft cervical collar) - Abdomen Abdomen: Soft, Non tender - Back Back: No CVA TTP - Neuro Neuro: Alert and oriented X 3, Normal speech Results - Vitals Vitals: Vital Signs - 24 hr 08/14/18 12:18 Temperature 36.4 C L Heart Rate 78 Respiratory 16 Rate O2 Saturation 99 Oxygen O2 Source Room air - Labs Labs: Laboratory Tests 08/14/18 12:55 Urine Color YELLOW Urine Clarity CLEAR Urine pH 6.5 Ur Specific [place] 1.010 Urine Protein NEGATIVE Urine Glucose (UA) NEGATIVE Urine Ketones NEGATIVE Urine Occult Blood TRACE-LYSE Urine Nitrite NEGATIVE Urine Bilirubin NEGATIVE Urine Urobilinogen 0.2 (NORMAL) Ur Leukocyte Esterase SMALL H Urine RBC 0-5 Urine WBC 11-25 H Ur Squamous Epith Cells RARE Squamous Urine Bacteria None Seen Ur Microscopic Review INDICATED Urine Culture Comments INDICATED PD MEDICAL DECISION MAKING - ED course ED course: Bladder scan was done by the nurse prior to my evaluation, 32 mL. Departure - Departure Disposition: 01 Home, Self Care Clinical Impression: Cystitis Constipation Qualifiers: Constipation type: drug induced constipation Qualified Code(s): K59.03 - Drug induced constipation Condition: Good Record reviewed to determine appropriate education?: Yes Instructions: ED Constipation, ED UTI Cystitis Female Prescriptions: Ciprofloxacin [Cipro] 250 mg PO Q12H #10 tablet Lactulose [Constulose] 10 gm PO TID PRN #300 ml PRN Reason: Constipation Comments: We will culture your urine, the results should be done in 48-72 hours. If an antibiotic change is necessary we will call you. Return if worse in the meantime, especially if you develop increasing flank pain, fevers, or cannot keep down the medication.
[2018-08-14 13:06] LABS: BILIRUBIN,URINE NEGATIVE (NEGATIVE); GLUCOSE, URINE (UA) NEGATIVE (NEGATIVE); KETONES,URINE (UA) NEGATIVE (NEGATIVE); LEUKOCYTE ESTERASE, URINE SMALL (NEGATIVE); NITRITE,URINE NEGATIVE (NEGATIVE); OCCULT BLOOD,URINE TRACE-LYSE (NEGATIVE); PH,URINE 6.5 PH (5.0-7.5); PROTEIN,URINE NEGATIVE (NEGATIVE); UROBILINOGEN,URINE 0.2 (NORMAL) E.U./dL (NORMAL)
[2018-08-14 13:08] LABS: CLARITY,URINE CLEAR (CLEAR)
[2018-08-14 13:13] LABS: BACTERIA,URINE None Seen /HPF (None Seen); RBC,URINE 0-5 /HPF (0-5); SQUAMOUS EPITHELIAL CELL,UR RARE Squamous (<= Few)
[2018-08-14] MEDS ORDERED: CIPROFLOXACIN 250 MG TABLET PO STA (13:21)
[2018-08-14] MEDS ORDERED: MAGNESIUM CITRATE 296 ML BOTTLE PO STA (13:21)
[2018-08-14 13:34] VITALS: BP 115/87
--- NOTE | 2018-08-17 05:35 | ED Physician Documentation ---
ED Addendum - Addendum Addendum: 08/17/18 05:34 culture log 63 f seen for dysuria after recent boss post op from spine surgery per EMR no fever or back pain UA was + txed with cipro culture is ESBL E coli resistent to all oral meds except macrobid and tetracycline so rx macrobid 100 BID X 7 days
== END 2018-08-14 13:34 | disposition home or self-care (01) ==
LOC: ED 12:14
DX: N30.90 Cystitis, unspecified without hematuria (principal); K59.03 Drug induced constipation; F17.200 Nicotine dependence, unspecified, uncomplicated
CPT/HCPCS: 81001; 87086; 87181; 99283; A9270; 81003

== ENCOUNTER 2018-08-28 18:45 | Emergency (ER) | payer OTHER ==
[2018-08-28 19:04] VITALS: BP 132/83
--- NOTE | 2018-08-28 19:55 | ED Physician Documentation ---
PD HPI SKIN - Stated complaint Stated Complaint: SENT BY DOC - Chief complaint Chief Complaint: Wound - History obtained from History obtained from: Patient - History of Present Illness Timing - onset: How many days ago Timing - duration: Days Timing - details: Gradual onset (She had neck surgery and has had some local tenderness and scabbing at part of the wound line. Has Home Health nurse doing dressing changes and wound checks. She was concerned about some redness at edge of upper part of the wound. Slight drainage to bandage.) Location: Neck (back of neck at surgical site.) Quality / character: Discolored (minimal redness at part of the line.). No: Painful Associated symptoms: No: Fever, Myalgias, N/V/D Contributing factors: Other (cervical spine surgery recently and has healing wound, with several days of slight redness and scabbing part of it.) Recently seen: Surgery (cervical spine) Review of Systems Constitutional: denies: Fever, Chills, Myalgias Skin: denies: Rash, Abrasion (s) Musculoskeletal: reports: Neck pain Neurologic: denies: Focal weakness, Numbness PD PAST MEDICAL HISTORY - Past Medical History Past Medical History: Yes Cardiovascular: High cholesterol Neuro: None GI: GERD Psych: Depression Musculoskeletal: Chronic back pain, Other - Past Surgical History Past Surgical History: Yes Ortho: Knee replacement - Present Medications Home Medications: Ambulatory Orders Medication Instructions Recorded Confirmed Omeprazole [Prilosec] 40 mg PO DAILY 05/22/13 08/28/16 Simvastatin [Zocor] 20 mg PO HS 05/22/13 08/28/16 Trazodone HCl 300 mg PO HS 05/22/13 08/28/16 Venlafaxine ER [Effexor ER] 300 mg PO DAILY 05/22/13 08/28/16 Docusate Sodium 250Mg Capsule 2 tab PO DAILY 02/11/16 08/28/16 [Colace] Alprazolam [Xanax] 1 mg PO DAILY 01/28/18 01/28/18 Cannabidiol (Cbd) Extract 08/14/18 [Epidiolex] Ciprofloxacin [Cipro] 250 mg PO Q12H #10 tablet 08/14/18 HYDROmorphone [Dilaudid] 08/14/18 Lactulose [Constulose] 10 gm PO TID PRN #300 ml 08/14/18 Perphenazine 08/14/18 Prochlorperazine [Compazine] 08/14/18 Doxycycline Hyclate 100 mg PO BID #20 capsule 08/28/18 Mupirocin 1 applic TP TID #15 g 08/28/18 - Allergies Allergies/Adverse Reactions: Allergies Allergy/AdvReac Type Severity Reaction Status Date / Time citalopram Allergy Respiratory Verified 08/28/18 19:04 topiramate [From Topamax] Allergy Respiratory Verified 08/28/18 19:04 Sulfa (Sulfonamide AdvReac Nausea Verified 08/28/18 19:04 Antibiotics) - Social History Does the pt smoke?: Yes Smoking Status: Current every day smoker Does the pt drink ETOH?: No Does the pt have substance abuse?: No - Immunizations Immunizations are current?: No Immunizations: TDAP >10years/unknown - POLST Patient has POLST: No PD ED PE NORMAL - Vitals Vital signs reviewed: Yes - General General: Alert and oriented X 3, No acute distress, Well developed/nourished - Neck Neck: Supple, no meningeal sign, No adenopathy, Other (back of neck with vertical incision line that is mostly good. There is slight redness around 2 small scab areas and I felt the end of an absorbable suture tail under the upper scab (the scab is about 2-3 mm size). No purulence noted, but there is some moisture on the gauze without purulence from owund per se. ) - Cardiac Cardiac: RRR, No murmur - Respiratory Respiratory: Clear bilaterally Results - Vitals Vitals: Oxygen O2 Source Room air - Labs Labs: Microbiology 08/28/18 20:11 Wound Culture - Preliminary Skin - Other PD MEDICAL DECISION MAKING - ED course Complexity details: considered differential, d/w patient Departure - Departure Disposition: 01 Home, Self Care Clinical Impression: Wound infection after surgery Condition: Stable Record reviewed to determine appropriate education?: Yes Instructions: ED Wound Care Follow-Up: Nydia Crespo ARNP [Primary Care Provider] - Prescriptions: Doxycycline Hyclate 100 mg PO BID #20 capsule Mupirocin 1 applic TP TID #15 g Comments: Continue cleaning the wound as you have 2-3 times a day with soap and water. Then apply a little bit of mupirocin antibiotic ointment and dressings as you have been doing. Add doxycycline antibiotic at least for the short-term pending culture results. Follow-up with the home health nurse for dressing change as scheduled. Return if worsening symptoms. Discharge Date/Time: 08/28/18 20:26
[2018-08-28] MEDS ORDERED: DOXYCYCLINE 100 MG TABLET PO STA (20:10)
[2018-08-28] MEDS ORDERED: MUPIROCIN 2% OINT 1 GM TOP STA (20:10)
== END 2018-08-28 20:26 | disposition home or self-care (01) ==
LOC: ED 18:45
DX: T81.49XA Infection following a procedure, other surgical site, initial encounter (principal); E78.00 Pure hypercholesterolemia, unspecified; F17.200 Nicotine dependence, unspecified, uncomplicated; Z96.659 Presence of unspecified artificial knee joint
CPT/HCPCS: 87070; 87205; 99283; A9270

== ENCOUNTER 2018-12-31 10:44 | Outpatient (CLI) | payer OTHER ==
--- NOTE | 2018-12-31 19:08 | XRAY Report ---
Reason: SWELLING OF RT FOOT RT ANKLE JOINT Procedure Date: 12/31/2018 Accession Number: [id number] / [id number] Procedure: XR - Foot 3 View RT CPT Code: FULL RESULT: EXAM: RIGHT FOOT RADIOGRAPHY EXAM DATE: 12/31/2018 12:26 PM. CLINICAL HISTORY: Pain and swelling lateral right foot COMPARISON: None. TECHNIQUE: 3 views. FINDINGS: Bones: Nondisplaced proximal right fifth metatarsal base fracture. Joints: Minor degenerative change first MTP articulation. No subluxations. Soft Tissues: Mild lateral soft tissue swelling. IMPRESSION: Nondisplaced right fifth metatarsal base fracture. RADIA
--- NOTE | 2018-12-31 19:09 | XRAY Report ---
Reason: SWELLING OF RT FOOT RT ANKLE JOINT Procedure Date: 12/31/2018 Accession Number: [id number] / [id number] Procedure: XR - Ankle 3 View RT CPT Code: FULL RESULT: EXAM: RIGHT ANKLE RADIOGRAPHY EXAM DATE: 12/31/2018 12:05 PM. CLINICAL HISTORY: Lateral pain post trauma COMPARISON: None. TECHNIQUE: 3 views. FINDINGS: Bones: Right fifth metatarsal base nondisplaced fracture. Joints: No effusion. No subluxations. The ankle mortise is normally aligned. Soft Tissues: Lateral soft tissue swelling. IMPRESSION: Mild soft tissue swelling and nondisplaced right fifth metatarsal base fracture. Otherwise negative right ankle. RADIA
== END 2018-12-31 10:45 | disposition home or self-care (01) ==
LOC: DI 10:44
PROVIDERS: ATTEND Nurse Practitioner Family
DX: S92.354A Nondisplaced fracture of fifth metatarsal bone, right foot, initial encounter for closed fracture (principal)

== ENCOUNTER 2019-01-13 17:11 | Outpatient (CLI) | payer OTHER ==
[2019-01-13] MEDS ORDERED: IOVERSOL 320 100 ML VIAL IVP ONE ×2 (17:34→18:12)
[2019-01-13] MEDS ORDERED: IOVERSOL 320 50 ML VIAL ONE (17:34)
[2019-01-13 17:58] LABS: CALCIUM 9.4 mg/dL (8.5-10.3)
[2019-01-13] MEDS ORDERED: IOVERSOL 320 50 ML VIAL PO ONE (18:12)
--- NOTE | 2019-01-13 19:45 | CT Report ---
Reason: ABDOMINAL BLOATING Procedure Date: 01/13/2019 Accession Number: [id number] / [id number] Procedure: CT - Abdomen/Pelvis W CPT Code: FULL RESULT: EXAM: CT ABDOMEN AND PELVIS EXAM DATE: 01/13/2019 07:25 PM. CLINICAL HISTORY: Abdominal bloating. COMPARISONS: ABDOMEN/PELVIS W/ 08/28/2016 6:10 PM. TECHNIQUE: Routine helical CT imaging was performed through the abdomen and pelvis. IV contrast: 100 mL [id number]. Enteric contrast: No. Reconstructions: Coronal and sagittal. In accordance with CT protocol optimization, one or more of the following dose reduction techniques were utilized for this exam: automated exposure control, adjustment of mA and/or KV based on patient size, or use of iterative reconstructive technique. FINDINGS: Lung Bases: Unremarkable. Liver: Normal. No masses. Gallbladder/Bile Ducts: Unremarkable. Spleen: Normal. Pancreas: Normal. Adrenal Glands: Normal. Kidneys: Normal. No masses or hydronephrosis. Peritoneal Cavity/Bowel: Mobile cecum within ventral right upper quadrant. No volvulus. Base of cecum is poorly distended limiting evaluation. Potential 11 mm cecal base wall thickening on series 3 image 40, corresponding to coronal image 15. Small normal appendix may be present. No inflamed appendix evident. Moderate volume of stool extending from the cecum to mid descending colon. Redundant descending colon. Pelvic Organs: Normal. The bladder and visualized pelvic organs are within normal limits. Vasculature: No aneurysms or other significant abnormality. Bones: Left L5-S1 neural foramen narrowing due to disk osteophyte complex and facet hypertrophy. Other: None. IMPRESSION: 1. Moderate volume of stool extending from cecum to mid descending colon. Potential constipation. No dilated bowel to suggest obstruction. 2. Mobile cecum without volvulus. Base of cecum is not well distended, limiting evaluation. Potential 11 mm cecal base wall thickening on axial image 40 corresponding to coronal image 15. Consider follow-up colonoscopy if not recently performed. RADIA
== END 2019-01-13 17:12 | disposition home or self-care (01) ==
LOC: LAB 17:11
PROVIDERS: ATTEND Nurse Practitioner Family
DX: R14.0 Abdominal distension (gaseous) (principal)
CPT/HCPCS: 36415; 74177; 80048; Q9967

== ENCOUNTER 2020-05-17 13:18 | Outpatient (CLI) | payer MEDICAID, MEDICARE ==
--- NOTE | 2020-05-17 16:02 | XRAY Report ---
PROCEDURE: Chest 2 View X-Ray INDICATIONS: COPD EXACERBATION TECHNIQUE: 2 view(s) of the chest. COMPARISON: Chest x-ray 06/05/2020 FINDINGS: Surgical changes and devices: None. Lungs and pleura: No pleural effusions or pneumothorax. Lungs are clear. Lungs are hyperexpanded s uggestive COPD. Mediastinum: Mediastinal contours are normal. Heart size is normal. Bones and chest wall: No suspicious bony abnormalities. Soft tissues appear unremarkable. IMPRESSION: No focal consolidations. Reviewed by: Elin Rhoades MD on 05/17/2020 4:01 PM PDT Approved by: Elin Rhoades MD on 05/17/2020 4:01 PM PDT Station ID: [id number]
== END 2020-05-17 13:19 | disposition home or self-care (01) ==
LOC: DI.S 13:18
PROVIDERS: ATTEND Physician Assistant
DX: J44.1 Chronic obstructive pulmonary disease with (acute) exacerbation (principal)
CPT/HCPCS: 71046

== ENCOUNTER 2020-05-18 19:06 | Emergency (ER) | payer MEDICARE ==
--- NOTE | 2020-05-18 19:44 | ED Physician Documentation ---
PD HPI DYSPNEA - Stated complaint Stated Complaint: SOB - Chief complaint Chief Complaint: Resp - History obtained from History obtained from: Patient - History of Present Illness Timing - onset: How many weeks ago (2) Timing - onset during: Rest Timing - duration: Weeks (2+) Timing - details: Gradual onset, Still present Inciting event(s): URI, Exposure (ie smoke) Improved by: Inhaler/neb Worsened by: Coughing, Smoke Associated symptoms: Cough, Chest pain / discomfort. No: Hemoptysis, Wheezing, Palpitations, Diaphoresis, Bilateral edema, Unilateral edema, Anxiety Similar symptoms before: Diagnosis (COPD) Recently seen: Clinic - Additional information Additional information: 65 y/o female with cough and congestion has a chronic cough and vocal cord dysfunction that has been present for years and is related to a sad time in her life when her mother and brother were murdered in their home and she lost her voice. She continues to have a hoarse voice to this day. This is slightly worse with the current illness. She has been in to see her PMD and she has been on a course of prednisone 40mg daily without improvement in her breathing. She feels like she just cant get a full deep breath and she has developed pain in the right upper back similar to what she has had previously when she is having trouble breathing. She went in for follow up yesterday and had an x-ray done. She has not had fever and she has is producing some phlem mostly [place] and white and changed slightly from her baseline smokers cough. Review of Systems Constitutional: denies: Fever, Chills Eyes: denies: Decreased vision Ears: denies: Ear pain Nose: reports: Rhinorrhea / runny nose, Congestion. denies: Sinus pressure / pain Throat: reports: Other (Hoarse voice as typical for her.). denies: Sore throat Cardiac: reports: Chest pain / pressure. denies: Palpitations (Pain to the right posterior chest wall is tender), Pedal edema, Calf pain Respiratory: reports: Dyspnea, Cough, Wheezing. denies: Hemoptysis GI: denies: Abdominal Pain, Nausea, Vomiting : denies: Dysuria, Frequency Skin: denies: Rash Musculoskeletal: denies: Neck pain, Back pain, Extremity pain Neurologic: denies: Generalized weakness, Focal weakness, Numbness PD PAST MEDICAL HISTORY - Past Medical History Past Medical History: Yes Cardiovascular: High cholesterol Neuro: None GI: GERD : None Psych: Depression Musculoskeletal: None, Chronic back pain, Other - Past Surgical History Past Surgical History: Yes Ortho: Knee replacement - Present Medications Home Medications: Ambulatory Orders Medication Instructions Recorded Confirmed Omeprazole [Prilosec] 40 mg PO DAILY 05/22/13 08/28/16 Simvastatin [Zocor] 20 mg PO HS 05/22/13 08/28/16 Trazodone HCl 300 mg PO HS 05/22/13 08/28/16 Venlafaxine ER [Effexor ER] 300 mg PO DAILY 05/22/13 08/28/16 Docusate Sodium 250Mg Capsule 2 tab PO DAILY 02/11/16 08/28/16 [Colace] Alprazolam [Xanax] 1 mg PO DAILY 01/28/18 01/28/18 Cannabidiol (Cbd) [Epidiolex] 08/14/18 Ciprofloxacin [Cipro] 250 mg PO Q12H #10 tablet 08/14/18 HYDROmorphone [Dilaudid] 08/14/18 Lactulose [Constulose] 10 gm PO TID PRN #300 ml 08/14/18 Perphenazine 08/14/18 Prochlorperazine [Compazine] 08/14/18 Doxycycline Hyclate 100 mg PO BID #20 capsule 08/28/18 Mupirocin 1 applic TP TID #15 g 08/28/18 Azithromycin [Zithromax] 250 mg PO DAILY #6 tablet 05/18/20 Benzonatate 100 - 200 mg PO TID PRN #20 capsule 05/18/20 predniSONE [Deltasone] 10 mg PO ONCE #26 tablet 05/18/20 - Allergies Allergies/Adverse Reactions: Allergies Allergy/AdvReac Type Severity Reaction Status Date / Time citalopram Allergy Respiratory Verified 05/18/20 19:16 topiramate [From Topamax] Allergy Respiratory Verified 05/18/20 19:16 Sulfa (Sulfonamide AdvReac Nausea Verified 05/18/20 19:16 Antibiotics) - Social History Does the pt smoke?: Yes Smoking Status: Current every day smoker Does the pt drink ETOH?: No Does the pt have substance abuse?: No - Immunizations Immunizations are current?: No Immunizations: TDAP >10years/unknown - POLST Patient has POLST: No PD ED PE NORMAL - Vitals Vital signs reviewed: Yes (hypertensive ) - General General: Alert and oriented X 3, Well developed/nourished, Other (65-year-old female with a horse voice and frequent cough appears mildly dyspneic at rest.) - HEENT HEENT: Atraumatic, PERRL, EOMI, Other (The right TM is clear the left TM is mildly erythematous along the umbo which is rounded. Pharynx shows dry mucous membranes and 2+ tonsils.) - Neck Neck: Supple, no meningeal sign, No bony TTP - Cardiac Cardiac: RRR, No murmur - Respiratory Respiratory: Other (Tachypneic at rest with diminished breath sounds and no focal rhonchi) - Abdomen Abdomen: Soft, Non tender - Back Back: No CVA TTP, No spinal TTP - Derm Derm: Normal color, Warm and dry, No rash - Extremities Extremities: No deformity, No edema, No calf tenderness / cord - Neuro Neuro: Alert and oriented X 3, back tender cylinder 2-12 intact, No motor deficit, No sensory deficit, Other (Speech is with a gravelly voice.) Eye Opening: Spontaneous Motor: Obeys Commands Verbal: Oriented GCS Score: 15 - Psych Psych: Normal mood, Normal affect Results - Vitals Vitals: Vital Signs - 24 hr 05/18/20 05/18/20 05/18/20 19:11 19:20 20:09 Temperature 36.3 C L 36.6 C Heart Rate 85 85 65 Respiratory 22 22 20 Rate Blood Pressure 137/71 H 137/77 H O2 Saturation 98 98 05/18/20 05/18/20 21:28 21:32 Temperature Heart Rate 72 72 Respiratory 21 21 Rate Blood Pressure 138/72 H 138/77 H O2 Saturation 98 98 Oxygen O2 Source Room air - EKG (time done) 1927 Rate: Rate (enter#) (69) Rhythm: NSR Ischemia: Other (borderline flattened T-waves anterior) Compare to prior EKG: Unchanged from prior EKG (SPT 06-05-2018 no sig change) Computer interpretation: Agree with computer - Labs Labs: Laboratory Tests 05/18/20 05/18/20 05/18/20 19:42 19:42 19:42 WBC 10.1 RBC 4.39 Hgb 14.2 Hct 42.2 MCV 96.1 MCH 32.3 H MCHC 33.6 RDW 13.0 Plt Count 238 MPV 9.5 Neut # (Auto) 6.2 Lymph # (Auto) 2.9 [place] # (Auto) 0.8 Eos # (Auto) 0.0 Baso # (Auto) 0.1 Absolute Nucleated RBC 0.00 Nucleated RBC % 0.0 Sodium 140 Potassium 3.9 Chloride 104 Carbon Dioxide 22 Anion Gap 14.0 H BUN 14 Creatinine 0.9 Estimated GFR (MDRD) 63 L Glucose 88 Calcium 9.6 Total Bilirubin 0.5 AST 16 ALT 18 Alkaline Phosphatase 68 Troponin I High Sens 3.3 Total Protein 7.1 Albumin 4.3 Globulin 2.8 Albumin/Globulin Ratio 1.5 Lipase 22 - Rads (name of study) chest Radiology: Prelim report reviewed (Impression: Mild interstitial prominence, no source of new chest pain is found.), EMP read indepedently, See rad report PD MEDICAL DECISION MAKING - ED course Complexity details: reviewed old records, reviewed results, re-evaluated patient, considered differential, d/w patient, other (no known covid exposure. Wears mask. not out much except to the store) ED course: 65-year-old female with a history of COPD who has an albuterol inhaler at home is not getting good results with this. She has been on 5 days of prednisone without significant change. There is significant small conversion here over the past week and the patient is found to have otitis on exam. Today she has some relief with the use of the DuoNeb treatment and she is given a spacer for use with her albuterol inhaler. She is given Rocephin 1 g intravenously for her otitis and we will place her on some azithromycin. She is given benzoate for her cough and dexamethasone 10 mg orally. We will extend her steroid Coyer course as well and at the conclusion of the visit she is some improved. She does have chronic hoarse voice and this is worse than usual and I suspect part of her problem is an upper airway issue with phlegm from the otitis. Departure - Departure Disposition: 01 Home, Self Care Clinical Impression: Hoarseness of voice Asthmatic bronchitis with acute exacerbation Qualifiers: Asthma severity: mild Asthma persistence: persistent Qualified Code(s): J45.31 - Mild persistent asthma with (acute) exacerbation Otitis media Qualifiers: Otitis media type: suppurative Chronicity: acute Laterality: left Recurrence: non-recurrent Spontaneous tympanic membrane rupture: without spontaneous rupture Qualified Code(s): H66.002 - Acute suppurative otitis media without spontaneous rupture of ear drum, left ear Condition: Stable Instructions: ED Bronchitis Asthmatic, ED Otitis Media Acute Adult Follow-Up: [facility] PA [Primary Care Provider] - Prescriptions: Benzonatate 100 - 200 mg PO TID PRN #20 capsule PRN Reason: Cough predniSONE [Deltasone] 10 mg PO ONCE #26 tablet Azithromycin [Zithromax] 250 mg PO DAILY #6 tablet Comments: Today it appears that your cough and shortness of breath have been exacerbated by poor air quality and presence of an infection in the left middle ear. Use the benzoate as needed for cough suppression, use your albuterol inhaler as needed and take the antibiotic as prescribed. You do not need to start the prednisone until tomorrow afternoon. The expectation is you will have slow steady improvement and if you have worsening or development of new symptoms return to the emergency department. Discharge Date/Time: 05/18/20 21:36
[2020-05-18 19:54] LABS: BASOPHILS # (AUTO) 0.1 10^3/uL (0.0-0.1); BASOPHILS % (AUTO) 0.5 %; EOSINOPHILS % (AUTO) 0.3 %; HGB - HEMOGLOBIN 14.2 g/dL (12.0-16.0); LYMPHOCYTES # (AUTO) 2.9 10^3/uL (1.5-3.5); LYMPHOCYTES % (AUTO) 29.1 %; MEAN CORPUSCULAR HEMOGLOBIN 32.3 pg (27.0-31.0); MEAN CORPUSCULAR HGB CONC 33.6 g/dL (32.0-36.0); MEAN CORPUSCULAR VOLUME 96.1 fL (81.0-99.0); MEAN PLATELET VOLUME 9.5 fL (7.9-10.8); MONOCYTES # (AUTO) 0.8 10^3/uL (0.0-1.0); MONOCYTES % (AUTO) 8.2 %; NEUTROPHILS # (AUTO) 6.2 10^3/uL (1.5-6.6); NEUTROPHILS % (AUTO) 61.6 %; PLT - PLATELET COUNT 238 10^3/uL (130-450); RED BLOOD COUNT 4.39 10^6/uL (4.20-5.40); WHITE BLOOD COUNT 10.1 x10^3/uL (4.8-10.8)
[2020-05-18] MEDS ORDERED: DEXAMETHASONE 10 MG/ML VIAL IVP STA (19:55)
[2020-05-18] MEDS ORDERED: IPRATROPIUM/ALBUTEROL 3 ML NEB INH STA (19:55)
[2020-05-18 20:08] LABS: ALBUMIN 4.3 g/dL (3.2-5.5); ALBUMIN/GLOBULIN RATIO 1.5 (1.0-2.2); BILIRUBIN,TOTAL 0.5 mg/dL (0.2-1.0); CALCIUM 9.6 mg/dL (8.5-10.3); CREATININE 0.9 mg/dL (0.4-1.0); TOTAL PROTEIN 7.1 g/dL (6.7-8.2)
[2020-05-18] MEDS ORDERED: cefTRIAXone 1 GM in SODIUM CHLORIDE 0.9% MINIBAG 100 ML IV STA (20:19)
[2020-05-18] MEDS ORDERED: BENZONATATE 100 MG CAPSULE PO STA ×2 (20:34→21:26)
[2020-05-18] MEDS ORDERED: cefTRIAXone 1 GM VIAL ONE (20:36)
--- NOTE | 2020-05-18 20:57 | XRAY Report ---
PROCEDURE: Chest 1 View X-Ray INDICATIONS: Chest pain TECHNIQUE: One view of the chest was acquired. COMPARISON: Prior chest plain films 2 views 05/17/2020 FINDINGS: Surgical changes and devices: None. Lungs and pleura: No pleural effusions or pneumothorax. Lungs are clear. Mediastinum: Mediastinal contours appear normal. Heart size is normal. Bones and chest wall: No suspicious bony lesions. Overlying soft tissues appear unremarkable. IMPRESSION: Mild interstitial prominence, no source of new chest pain is found. Reviewed by: Juan Francisco Almonte MD on 05/18/2020 8:55 PM PDT Approved by: Juan Francisco Almonte MD on 05/18/2020 8:55 PM PDT Station ID: [id number]
[2020-05-18 21:33] VITALS: BP 138/77
== END 2020-05-18 21:36 | disposition home or self-care (01) ==
LOC: ED 19:06
DX: J45.31 Mild persistent asthma with (acute) exacerbation (principal); J44.9 Chronic obstructive pulmonary disease, unspecified; H66.002 Acute suppurative otitis media without spontaneous rupture of ear drum, left ear; R49.0 Dysphonia; R07.9 Chest pain, unspecified; F17.200 Nicotine dependence, unspecified, uncomplicated
CPT/HCPCS: 36415; 71045; 80053; 83690; 84484; 85025; 93005; 94640; 94664; 96365; 96375; 99284; A9270

== ENCOUNTER 2020-07-18 10:22 | Outpatient (CLI) | payer MEDICARE, MEDICAID ==
[2020-07-18 14:50] LABS: ALBUMIN 3.9 g/dL (3.2-5.5); ALBUMIN/GLOBULIN RATIO 1.4 (1.0-2.2); ALKALINE PHOSPHATASE 64 IU/L (42-121); ALT ALANINE AMINOTRANSFERASE 16 IU/L (10-60); AST ASPARTATE AMINOTRANSFERASE 16 IU/L (10-42); BILIRUBIN,TOTAL 0.5 mg/dL (0.2-1.0); BUN - BLOOD UREA NITROGEN 15 mg/dL (6-20); CARBON DIOXIDE - CO2 28 mmol/L (21-32); CHLORIDE 106 mmol/L (101-111); CHOL/HDL RATIO 5.4 (<4.4); CHOLESTEROL 260 mg/dL; CREATININE 0.8 mg/dL (0.4-1.0); CRP HIGH SENSITIVITY 4.9 mg/L; HDL CHOLESTEROL 48 mg/dL; LDL CHOLESTEROL,CALCULATED 197 mg/dL; LDL/HDL RATIO 4.1 (<4.4); SODIUM 142 mmol/L (135-145); TOTAL PROTEIN 6.6 g/dL (6.7-8.2); VLDL CHOLESTEROL 15 mg/dL
[2020-07-18 14:53] LABS: GLUCOSE 60 mg/dL (70-100)
[2020-07-18 15:09] LABS: BASOPHILS # (AUTO) 0.1 10^3/uL (0.0-0.1); BASOPHILS % (AUTO) 0.8 %; EOSINOPHILS # (AUTO) 0.2 10^3/uL (0.0-0.7); HGB - HEMOGLOBIN 14.1 g/dL (12.0-16.0); LYMPHOCYTES # (AUTO) 2.1 10^3/uL (1.5-3.5); LYMPHOCYTES % (AUTO) 23.9 %; MEAN CORPUSCULAR HEMOGLOBIN 31.3 pg (27.0-31.0); MEAN CORPUSCULAR HGB CONC 31.6 g/dL (32.0-36.0); MEAN CORPUSCULAR VOLUME 98.9 fL (81.0-99.0); MEAN PLATELET VOLUME 10.1 fL (7.9-10.8); MONOCYTES # (AUTO) 0.6 10^3/uL (0.0-1.0); MONOCYTES % (AUTO) 6.6 %; NEUTROPHILS # (AUTO) 5.7 10^3/uL (1.5-6.6); NEUTROPHILS % (AUTO) 66.4 %; PLT - PLATELET COUNT 234 10^3/uL (130-450); RED BLOOD COUNT 4.51 10^6/uL (4.20-5.40); RED CELL DISTRIBUTION WIDTH 13.4 % (12.0-15.0); WHITE BLOOD COUNT 8.6 x10^3/uL (4.8-10.8)
[2020-07-18 18:01] LABS: RHEUMATOID FACTOR NEGATIVE (Negative)
[2020-07-20 13:06] LABS: ANA SCREEN NEGATIVE (NEGATIVE)
== END 2020-07-18 10:23 | disposition home or self-care (01) ==
LOC: LAB.S 10:22
PROVIDERS: ATTEND Nurse Practitioner Family
DX: M19.90 Unspecified osteoarthritis, unspecified site (principal)
CPT/HCPCS: 36415; 80053; 80061; 83721; 85025; 85651; 86038; 86141; 86430

== ENCOUNTER 2021-03-06 08:00 | Outpatient (CLI) | payer MEDICARE, MEDICAID | END 2021-03-06 23:59 | disposition home or self-care (01) | LOC: LAB.S 08:00 | PROVIDERS: ATTEND Physician Assistant | DX: L03.031 Cellulitis of right toe (principal) | CPT/HCPCS: 87070; 87181; 87205 ==

== ENCOUNTER 2021-04-24 09:43 | Day surgery (SDC) | payer MEDICARE, MEDICAID ==
[2021-04-24] MEDS ORDERED: LACTATED RINGERS 1,000 ML IV ONE ×2 (10:18→11:30)
--- NOTE | 2021-04-24 10:45 | ANESTHESIA ---
Pre-Anesthesia VS, & Labs - Diagnosis Hx barrets esophagus, hx of colon polyps - Procedure EGD and colonoscopy Vital Signs: Temp Pulse Resp BP Pulse Ox 36.9 C 76 16 142/77 H 98 04/24/21 10:02 04/24/21 10:02 04/24/21 10:02 04/24/21 10:02 04/24/21 10:02 Height: 5 ft 2.5 in Weight (kg): 79 kg Body Mass Index: 31.3 BMI Classification: Obese - Is Patient ?: No Home Medications and Allergies Home Medications: Ambulatory Orders Atorvastatin [Lipitor] 40 mg PO DAILY 04/24/21 Gabapentin [Neurontin] 600 mg PO TID 04/24/21 Omeprazole [Prilosec] 40 mg PO DAILY 05/22/13 Trazodone HCl 300 mg PO HS 05/22/13 Venlafaxine ER [Effexor ER] 300 mg PO DAILY 05/22/13 Alprazolam [Xanax] 1 mg PO DAILY 01/28/18 Perphenazine 2 mg PO DAILY 08/14/18 Atorvastatin [Lipitor] 40 mg PO DAILY 04/24/21 Gabapentin [Neurontin] 600 mg PO TID 04/24/21 Allergies/Adverse Reactions: Allergies Allergy/AdvReac Type Severity Reaction Status Date / Time citalopram Allergy Respiratory Verified 05/18/20 19:16 topiramate [From Topamax] Allergy Respiratory Verified 05/18/20 19:16 fluticasone [From Flonase] AdvReac Rash Verified 04/24/21 10:19 Sulfa (Sulfonamide AdvReac Nausea Verified 05/18/20 19:16 Antibiotics) Anes History & Medical History - Anesthetic History Anesthesia Complications: reports: Other-see comment ("woke up during last scope") - Medical History Cardiovascular: reports: High cholesterol Pulmonary: reports: COPD, Pneumonia, Sleep apnea, CPAP use Gastrointestinal: reports: GERD, Colon polyps, Chronic constipation Urinary: reports: None Neuro: reports: None Musculoskeletal: reports: Osteoarthritis, Chronic back pain Endocrine/Autoimmune: reports: None Skin: reports: None Smoking Status: Current every day smoker (vaping) Psychosocial: reports: Anxiety, Other (PTSD) 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
[2021-04-24] MEDS ORDERED: fentaNYL 100 MCG/2 ML VIAL ONE (10:54)
[2021-04-24] MEDS ORDERED: PROPOFOL 200 MG/20 ML VIAL IVP ONE (10:54)
[2021-04-24] MEDS ORDERED: MIDAZOLAM 2 MG/2 ML VIAL ONE (10:54)
[2021-04-24 11:53] VITALS: BP 123/67
--- NOTE | 2021-04-24 11:53 | ANESTHESIA POST OP EVALUATION ---
Anesthesia Post Eval - Post Anesthesia Eval Vitals: Last Vital Signs Temp 36.4 C L 04/24/21 11:42 Pulse 60 04/24/21 11:52 Resp 14 04/24/21 11:52 BP 123/67 04/24/21 11:52 Pulse Ox 96 04/24/21 11:52 CV Function Including HR & BP: Stable Pain Control: Satisfactory Nausea & Vomiting: Negative Mental Status: Baseline Respiratory Status: Airway Patent Hydration Status: Satisfactory Anesthesia Complications: None
== END 2021-04-24 09:44 | disposition home or self-care (01) ==
LOC: SDS 09:43
PROVIDERS: ATTEND Surgery
PROC: 0DB48ZX Excision of Esophagogastric Junction, Via Natural or Artificial Opening Endoscopic, Diagnostic (ICD-10-PCS; principal; 2021-04-24 10:45)
DX: K22.70 Barrett's esophagus without dysplasia (principal); K21.9 Gastro-esophageal reflux disease without esophagitis; K44.9 Diaphragmatic hernia without obstruction or gangrene; K57.30 Diverticulosis of large intestine without perforation or abscess without bleeding; Z86.010 Personal history of colon polyps; K64.4 Residual hemorrhoidal skin tags; K64.8 Other hemorrhoids; K58.9 Irritable bowel syndrome, unspecified; Z92.84 Personal history of unintended awareness under general anesthesia; G47.33 Obstructive sleep apnea (adult) (pediatric); E78.5 Hyperlipidemia, unspecified; F17.200 Nicotine dependence, unspecified, uncomplicated; E66.9 Obesity, unspecified; Z68.31 Body mass index [BMI] 31.0-31.9, adult; F44.81 Dissociative identity disorder; F32.9 Major depressive disorder, single episode, unspecified; F41.9 Anxiety disorder, unspecified; F43.10 Post-traumatic stress disorder, unspecified; F40.240 Claustrophobia; Z87.19 Personal history of other diseases of the digestive system; Z79.899 Other long term (current) drug therapy; J44.9 Chronic obstructive pulmonary disease, unspecified
CPT/HCPCS: 43239; G0105; J7120

== ENCOUNTER 2021-06-30 08:00 | Outpatient (CLI) | payer MEDICARE, MEDICAID ==
[2021-06-30 15:05] LABS: BASOPHILS # (AUTO) 0.1 10^3/uL (0.0-0.1); BASOPHILS % (AUTO) 1.1 %; EOSINOPHILS # (AUTO) 0.1 10^3/uL (0.0-0.7); EOSINOPHILS % (AUTO) 1.7 %; HCT - HEMATOCRIT 43.5 % (37.0-47.0); HGB - HEMOGLOBIN 13.7 g/dL (12.0-16.0); LYMPHOCYTES # (AUTO) 2.2 10^3/uL (1.5-3.5); LYMPHOCYTES % (AUTO) 35.2 %; MEAN CORPUSCULAR HEMOGLOBIN 31.2 pg (27.0-31.0); MEAN CORPUSCULAR HGB CONC 31.5 g/dL (32.0-36.0); MEAN CORPUSCULAR VOLUME 99.1 fL (81.0-99.0); MEAN PLATELET VOLUME 9.7 fL (7.9-10.8); MONOCYTES # (AUTO) 0.6 10^3/uL (0.0-1.0); MONOCYTES % (AUTO) 8.7 %; NEUTROPHILS # (AUTO) 3.4 10^3/uL (1.5-6.6); PLT - PLATELET COUNT 226 10^3/uL (130-450); RED BLOOD COUNT 4.39 10^6/uL (4.20-5.40); RED CELL DISTRIBUTION WIDTH 13.1 % (12.0-15.0); WHITE BLOOD COUNT 6.3 x10^3/uL (4.8-10.8)
[2021-06-30 15:27] LABS: ALBUMIN 4.5 g/dL (3.2-5.5); ALBUMIN/GLOBULIN RATIO 1.9 (1.0-2.2); ALKALINE PHOSPHATASE 52 IU/L (42-121); ALT ALANINE AMINOTRANSFERASE 38 IU/L (10-60); AST ASPARTATE AMINOTRANSFERASE 28 IU/L (10-42); BILIRUBIN,TOTAL 0.6 mg/dL (0.2-1.0); BUN - BLOOD UREA NITROGEN 13 mg/dL (6-20); CALCIUM 8.9 mg/dL (8.5-10.3); CARBON DIOXIDE - CO2 28 mmol/L (21-32); CHLORIDE 101 mmol/L (101-111); CHOL/HDL RATIO 2.3 (<4.4); CHOLESTEROL 125 mg/dL; CREATININE 0.9 mg/dL (0.4-1.0); GFR - MDRD 63 (>89); GLUCOSE 105 mg/dL (70-100); HDL CHOLESTEROL 54 mg/dL; LDL CHOLESTEROL,CALCULATED 61 mg/dL; LDL/HDL RATIO 1.1 (<4.4); SODIUM 138 mmol/L (135-145); TOTAL PROTEIN 6.9 g/dL (6.7-8.2); TRIGLYCERIDES 50 mg/dL; VLDL CHOLESTEROL 10 mg/dL
[2021-06-30 15:38] LABS: THYROID STIMULATING HORMONE 1.11 uIU/mL (0.34-5.60)
== END 2021-06-30 23:59 | disposition home or self-care (01) ==
LOC: LAB.S 08:00
PROVIDERS: ATTEND Physician Assistant Medical
DX: E78.2 Mixed hyperlipidemia (principal); H61.892 Other specified disorders of left external ear
CPT/HCPCS: 36415; 80053; 80061; 83721; 84443; 85025

== ENCOUNTER 2021-07-02 20:42 | Emergency (ER) | payer MEDICARE, MEDICAID ==
--- NOTE | 2021-07-02 21:23 | ED Physician Documentation ---
History of Present Illness - Stated complaint Stated Complaint: HIGH BP - Chief complaint Chief Complaint: Cardiac - History obtained from History obtained from: Patient - History of Present Illness Timing: How many days ago (2) Pain level max: 0 Pain level now: 0 - Additonal information Additional information: patient was at [facility] last week and was noted to have high blood pressure readings; patient recalls readings were as high as 154/107. She was then seen in a walk-in clinic 2 days ago and again found to have high blood pressure readings, 170s/110s-110s (had outpatient blood tests at that time including CBC, CMP, TSH; these results are viewable on [employer] and there are no concerning nor relevant abnormalities). She began recording her blood pressures several times per day yesterday and today; she shows me these readings and they are mostly 170s systolic and 100s-110s diastolic. She has no symptoms; denies chest pain, shortness of breath, headache, visual changes. She says she has not been on blood pressure medications in the past, has not been diagnosed with hypertension Review of Systems Eyes: denies: Loss of vision, Decreased vision Cardiac: reports: Reviewed and negative Respiratory: reports: Reviewed and negative GI: reports: Reviewed and negative Neurologic: reports: Reviewed and negative PD PAST MEDICAL HISTORY - Past Medical History Cardiovascular: High cholesterol Respiratory: COPD, Pneumonia, Sleep apnea, CPAP use Neuro: None Endocrine/Autoimmune: None GI: GERD, Colon polyps, Chronic constipation : None HEENT: Chronic vision loss, Chronic hearing loss Psych: Anxiety, Panic attacks, Post traumatic stress disorder Musculoskeletal: Osteoarthritis, Chronic back pain Derm: None - Past Surgical History Past Surgical History: Yes Ortho: Knee replacement, Spine surgery - Present Medications Home Medications: Ambulatory Orders Medication Instructions Recorded Confirmed Omeprazole [Prilosec] 40 mg PO DAILY 05/22/13 04/24/21 Trazodone HCl 300 mg PO HS 05/22/13 04/24/21 Venlafaxine ER [Effexor ER] 300 mg PO DAILY 05/22/13 04/24/21 Alprazolam [Xanax] 1 mg PO DAILY 01/28/18 04/24/21 Perphenazine 2 mg PO DAILY 08/14/18 04/24/21 Mupirocin 1 applic TP TID #15 g 08/28/18 04/24/21 Atorvastatin [Lipitor] 40 mg PO DAILY 04/24/21 04/24/21 Gabapentin [Neurontin] 600 mg PO TID 04/24/21 04/24/21 amLODIPine [Norvasc] 5 mg PO DAILY #20 tablet 07/02/21 - Allergies Allergies/Adverse Reactions: Allergies Allergy/AdvReac Type Severity Reaction Status Date / Time citalopram Allergy Respiratory Verified 07/02/21 20:49 topiramate [From Topamax] Allergy Respiratory Verified 07/02/21 20:49 fluticasone [From Flonase] AdvReac Rash Verified 07/02/21 20:49 Sulfa (Sulfonamide AdvReac Nausea Verified 07/02/21 20:49 Antibiotics) - Social History Does the pt smoke?: Yes Smoking Status: Current every day smoker (vaping) Does the pt drink ETOH?: No Does the pt have substance abuse?: No - Immunizations Immunizations are current?: No Immunizations: TDAP >10years/unknown - POLST Patient has POLST: No PD ED PE NORMAL - Vitals Vital signs reviewed: Yes - General General: Alert and oriented X 3, No acute distress, Well developed/nourished - Cardiac Cardiac: RRR, No murmur, No gallop, No rub - Respiratory Respiratory: No respiratory distress, Clear bilaterally Results - Vitals Vitals: Vital Signs - 24 hr 07/02/21 07/02/21 20:49 21:59 Temperature 36.5 C Heart Rate 88 68 Respiratory 16 14 Rate Blood Pressure 147/81 H 145/88 H O2 Saturation 98 98 Oxygen O2 Source Room air PD MEDICAL DECISION MAKING - ED course Complexity details: reviewed old records, reviewed results, re-evaluated patient, considered differential, d/w patient ED course: presents with asymptomatic hypertension although she notes there have been persistently high readings since last week. Her BP on [facility]'s triage is borderline high (145/88). We discussed options for treatment including continuing to record her blood pressures over a longer period of time in order to see if there are trends at certain times of day, versus starting low-dose antihypertensive now. Given that she has had high readings over past 2 days as well as in outpatient clinic and at [facility] last week, it is reasonable to start h er on low-dose antihypertensive at this time, which she would prefer over continuing to monitor without treatment. She understands that she will still need to monitor her blood pressures, and that there is a risk of her blood pressure dropping too low, which would be a potential immediate danger and to stop her antihypertensive if her blood pressures drop below 100 systolic. She is given 5mg amlodipine and rx for 3 weeks supply transmitted to her pharmacy. Also factored into decision to treat is that patient says her primary care provider's office does not have appointments available for as long as one month from when she calls. Departure - Departure Disposition: Home, Self Care Clinical Impression: Hypertension Qualifiers: Hypertension type: unspecified Qualified Code(s): I10 - Essential (primary) hypertension Condition: Good Instructions: ED Hypertension New Begin Tx Follow-Up: Pascual Thomason MD [Primary Care Provider] - Prescriptions: amLODIPine [Norvasc] 5 mg PO DAILY #20 tablet Comments: A prescription for the antihypertension medication has been electronically submitted to [facility] pharmacy in [place]. Discharge Date/Time: 07/02/21 22:07
[2021-07-02] MEDS ORDERED: amLODIPine 5 MG TABLET PO STA (21:42)
[2021-07-02 22:04] VITALS: BP 145/88
== END 2021-07-02 22:07 | disposition home or self-care (01) ==
LOC: ED 20:42
DX: I10 Essential (primary) hypertension (principal); F17.290 Nicotine dependence, other tobacco product, uncomplicated
CPT/HCPCS: 99282; 99283; A9270

== ENCOUNTER 2021-08-10 13:21 | Outpatient (CLI) | payer MEDICARE, MEDICAID ==
--- NOTE | 2021-08-13 12:52 | Mammography Report ---
BILATERAL DIGITAL SCREENING MAMMOGRAM 3D/2D: 08/10/2021 CLINICAL: Routine screening. Comparison is made to exams dated: 08/14/2017 mammogram and 03/18/2016 mammogram - [facility]. There are scattered fibroglandular elements in both breasts. No significant masses, calcifications, or other findings are seen in either breast. There has been no significant interval change. IMPRESSION: NEGATIVE There is no mammographic evidence of malignancy. A 1 year screening mammogram is recommended. This exam was interpreted at Station ID: [id number]. NOTE: For mammograms, a report in lay terms will be sent to the patient. Approximately 15% of breast malignancies will not be visualized mammographically. In the management of a palpable breast mass, a negative mammogram must not discourage biopsy of a clinically suspicious lesion. Electronically Signed By: Omar Quijano M.D. aty/penrad:08/10/2021 16:58:49 ACR BI-RADS Category 1: Negative 3341F PARENCHYMAL PATTERN: (A) - The breast(s) demonstrate(s) scattered fibroglandular densities. BI-RADS CATEGORY: (1) - 1 RECOMMENDATION: (ANNUAL) - Recommend routine annual screening mammography. [id number] 1 year screening LATERALITY: (B)
== END 2021-08-10 13:22 | disposition home or self-care (01) ==
LOC: DI 13:21
PROVIDERS: ATTEND Registered Nurse
DX: Z12.31 Encounter for screening mammogram for malignant neoplasm of breast (principal)

== ENCOUNTER 2021-08-10 13:30 | Outpatient (CLI) | payer MEDICARE, MEDICAID ==
--- NOTE | 2021-08-10 15:33 | CT Report ---
PROCEDURE: Low Dose Lung Cancer Screen INDICATIONS: FORMER SMOKER TECHNIQUE: Noncontrast low-dose images were acquired from the pulmonary apices to the posterior costophrenic ang les. Multiplanar MIP reformats were then acquired. For radiation dose reduction, the following was used: automated exposure control, adjustment of mA and/or kV according to patient size. COMPARISON: None. FINDINGS: Image quality: Excellent. Lungs and pleura: No suspicious pulmonary nodules. Unremarkable parenchyma. Mediastinum: Heart size is normal. No pericardial effusion. No mediastinal adenopathy by size crit eria. Thoracic aorta and central pulmonary arteries are normal in size. Origin calcifications of th e proximal left subclavian and brachiocephalic arteries. Esophagus is normal in caliber. No hiatal h ernia. Bones and chest wall: No suspicious bony lesions. No vertebral body compression fractures. No axil lyndsay or supraclavicular adenopathy by size criteria. The thyroid is normal in size and there are no incidental findings. Abdomen: Visualized upper abdomen solid organs and bowel loops appear normal in the absence of contr ast. IMPRESSION: 1. LungRads category 1: Negative. No nodules and/or definitely benign nodules. 2. Annual low-dose noncontrast CT of the chest is recommended for lung cancer screening. 3. Clinically significant or potentially clinically significant findings (nonlung cancer): ASCVD CLINICAL RECOMMENDATION STATEMENTS: In patients <35 years with an ITN detected on CT, MRI, or extrathyroidal ultrasound, the Committee re commends further evaluation with dedicated thyroid ultrasound if the nodule is "e1 cm and has no susp icious imaging features, and if the patient has normal life expectancy. In patients "e35 years with an ITN detected on CT, MRI, or extrathyroidal ultrasound, the Committee r ecommends further evaluation with dedicated thyroid ultrasound if the nodule is "e1.5 cm and has no s uspicious imaging features, and if the patient has normal life expectancy. (ACR, 2014) Reviewed by: Roddy Gary MD on 08/10/2021 3:31 PM PST Approved by: Roddy Gary MD on 08/10/2021 3:31 PM PST Station ID: [id number]
== END 2021-08-10 23:59 | disposition home or self-care (01) ==
LOC: DI 13:30
PROVIDERS: ATTEND Registered Nurse
DX: Z12.2 Encounter for screening for malignant neoplasm of respiratory organs (principal); Z87.891 Personal history of nicotine dependence

== ENCOUNTER 2021-11-15 08:00 | Outpatient (CLI) | payer MEDICARE, MEDICAID ==
[2021-11-15 14:53] LABS: BILIRUBIN,URINE NEGATIVE (NEGATIVE); GLUCOSE, URINE (UA) NEGATIVE (NEGATIVE); KETONES,URINE (UA) NEGATIVE (NEGATIVE); LEUKOCYTE ESTERASE, URINE NEGATIVE (NEGATIVE); NITRITE,URINE NEGATIVE (NEGATIVE); OCCULT BLOOD,URINE NEGATIVE (NEGATIVE); PROTEIN,URINE NEGATIVE (NEGATIVE); UROBILINOGEN,URINE 0.2 (NORMAL) E.U./dL (NORMAL)
[2021-11-15 14:58] LABS: CLARITY,URINE CLEAR (CLEAR)
[2021-11-15 15:55] LABS: BACTERIA,URINE None Seen /HPF (None Seen); RBC,URINE None Seen /HPF (0-5); SQUAMOUS EPITHELIAL CELL,UR RARE Squamous (<= Few); WBC,URINE 0-3 /HPF (0-5)
== END 2021-11-15 23:59 ==
LOC: LAB.S 08:00
PROVIDERS: ATTEND Emergency Medicine
DX: R30.0 Dysuria (principal)
CPT/HCPCS: 81001; 87086

== ENCOUNTER 2022-05-23 15:36 | Outpatient (CLI) | payer MEDICARE, MEDICAID ==
--- NOTE | 2022-05-23 17:04 | XRAY Report ---
PROCEDURE: Chest 2 View X-Ray INDICATIONS: PERIODIC HEART FLUTTER TECHNIQUE: 2 view(s) of the chest. COMPARISON: CT chest, 06/10/2021. Chest x-ray one view, 05/18/2020. FINDINGS: Surgical changes and devices: None. Lungs and pleura: No pleural effusions or pneumothorax. Lungs are clear. Diaphragmatic eventration s bilaterally. Mediastinum: Mediastinal contours are normal. Heart size is normal. Bones and chest wall: No suspicious bony abnormalities. Soft tissues appear unremarkable. IMPRESSION: No acute cardiopulmonary disease. Reviewed by: Ariel Enriquez MD on 05/23/2022 5:03 PM PDT Approved by: Ariel Enriquez MD on 05/23/2022 5:03 PM PDT Station ID: [id number]
== END 2022-05-23 15:37 | disposition home or self-care (01) ==
LOC: DI.S 15:36
PROVIDERS: ATTEND Registered Nurse
DX: I49.8 Other specified cardiac arrhythmias (principal)

== ENCOUNTER 2022-05-24 07:15 | Outpatient (CLI) | payer MEDICARE, MEDICAID ==
[2022-05-24 14:25] LABS: BASOPHILS # (AUTO) 0.1 10^3/uL (0.0-0.1); BASOPHILS % (AUTO) 0.9 %; EOSINOPHILS # (AUTO) 0.3 10^3/uL (0.0-0.7); EOSINOPHILS % (AUTO) 4.3 %; HCT - HEMATOCRIT 38.9 % (37.0-47.0); HGB - HEMOGLOBIN 12.2 g/dL (12.0-16.0); LYMPHOCYTES # (AUTO) 1.8 10^3/uL (1.5-3.5); LYMPHOCYTES % (AUTO) 26.1 %; MEAN CORPUSCULAR HEMOGLOBIN 30.7 pg (27.0-31.0); MEAN CORPUSCULAR HGB CONC 31.4 g/dL (32.0-36.0); MEAN CORPUSCULAR VOLUME 97.7 fL (81.0-99.0); MONOCYTES # (AUTO) 0.7 10^3/uL (0.0-1.0); MONOCYTES % (AUTO) 9.7 %; NEUTROPHILS # (AUTO) 3.9 10^3/uL (1.5-6.6); NEUTROPHILS % (AUTO) 58.7 %; PLT - PLATELET COUNT 251 10^3/uL (130-450); RED BLOOD COUNT 3.98 10^6/uL (4.20-5.40); RED CELL DISTRIBUTION WIDTH 13.5 % (12.0-15.0); WHITE BLOOD COUNT 6.7 x10^3/uL (4.8-10.8)
[2022-05-24 14:53] LABS: ALBUMIN 3.9 g/dL (3.2-5.5); ALBUMIN/GLOBULIN RATIO 1.3 (1.0-2.2); ALKALINE PHOSPHATASE 64 IU/L (42-121); ALT ALANINE AMINOTRANSFERASE 38 IU/L (10-60); AST ASPARTATE AMINOTRANSFERASE 30 IU/L (10-42); BILIRUBIN,TOTAL 0.7 mg/dL (0.2-1.0); BUN - BLOOD UREA NITROGEN 14 mg/dL (6-20); CALCIUM 9.2 mg/dL (8.5-10.3); CARBON DIOXIDE - CO2 26 mmol/L (21-32); CHLORIDE 106 mmol/L (101-111); CHOLESTEROL 137 mg/dL; CREATININE 0.9 mg/dL (0.4-1.0); GFR - MDRD 62 (>89); GLUCOSE 95 mg/dL (70-100); HDL CHOLESTEROL 52 mg/dL; POTASSIUM 4.2 mmol/L (3.5-5.0); SODIUM 141 mmol/L (135-145); TOTAL PROTEIN 6.9 g/dL (6.7-8.2); TRIGLYCERIDES 62 mg/dL; VLDL CHOLESTEROL 12 mg/dL
[2022-05-24 14:54] LABS: CHOL/HDL RATIO 2.6 (<4.4); LDL CHOLESTEROL,CALCULATED 73 mg/dL; LDL/HDL RATIO 1.4 (<4.4)
[2022-05-24 14:58] LABS: THYROID STIMULATING HORMONE 0.98 uIU/mL (0.34-5.60)
== END 2022-05-24 07:16 | disposition home or self-care (01) ==
LOC: LAB.S 07:15
PROVIDERS: ATTEND Registered Nurse
DX: E78.2 Mixed hyperlipidemia (principal); Z79.899 Other long term (current) drug therapy; Z13.29 Encounter for screening for other suspected endocrine disorder
CPT/HCPCS: 36415; 80053; 80061; 83721; 84443; 85025

== ENCOUNTER 2022-05-26 16:18 | Outpatient (CLI) | payer MEDICARE, MEDICAID ==
--- NOTE | 2022-05-26 20:01 | Ultrasound Report ---
PROCEDURE: Carotid Doppler Complete INDICATIONS: CVA TECHNIQUE: Color and pulse Doppler interrogation was performed of both carotid systems, with image documentation and velocity measurements. COMPARISON: None. FINDINGS: Right side: Brachial blood pressure: 116/56 mm Hg. Common carotid artery peak systolic velocity: 54 cm/sec. Internal carotid artery peak systolic velocity: 68 cm/sec. Internal carotid artery end diastolic velocity: 19 cm/sec. External carotid artery peak systolic velocity: 96 cm/sec. ICA/CCA peak systolic ratio: 1.3 . Diallo scale imaging description: No visualized plaque Percent internal carotid artery stenosis: No hemodynamically significant stenosis . Vertebral artery: Flow direction is antegrade. Left side: Brachial blood pressure: 117/58 mm Hg. Common carotid artery peak systolic velocity: 71 cm/sec. Internal carotid artery peak systolic velocity: 71 cm/sec. Internal carotid artery end diastolic velocity: 26 cm/sec. External carotid artery peak systolic velocity: 121 cm/sec. ICA/CCA peak systolic ratio: 1.0 . Diallo scale imaging description: No visualized plaque. Percent internal carotid artery stenosis: No hemodynamically significant stenosis. . Vertebral artery: Flow direction is antegrade. IMPRESSION: No hemodynamically significant stenosis. The estimate of stenosis included in the report of the imaging study was calculated using the NASCET method Reviewed by: Elin Rhoades MD on 05/26/2022 8:00 PM PDT Approved by: Elin Rhoades MD on 05/26/2022 8:00 PM PDT Station ID: [id number]
== END 2022-05-26 16:19 | disposition home or self-care (01) ==
LOC: DI 16:18
PROVIDERS: ATTEND Physician Assistant Medical
DX: I63.9 Cerebral infarction, unspecified (principal); R27.9 Unspecified lack of coordination; R29.810 Facial weakness
CPT/HCPCS: 93880

== ENCOUNTER 2022-10-01 07:56 | Outpatient (CLI) | payer MEDICARE, MEDICAID ==
--- NOTE | 2022-10-02 11:26 | Mammography Report ---
BILATERAL DIGITAL SCREENING MAMMOGRAM 3D/2D: 10/01/2022 CLINICAL: Routine screening. Family history of breast cancer. Comparison is made to exams dated: 08/10/2021 mammogram, 08/14/2017 mammogram, and 03/18/2016 mammogr am - [facility]. There are scattered areas of fibroglandular density in both breasts (category b / 25%-50% glandular t issue). No significant masses, calcifications, or other findings are seen in either breast. There has been no significant interval change. IMPRESSION: NEGATIVE There is no mammographic evidence of malignancy. A 1 year screening mammogram is recommended. Based on the Tyrer Cuzick model (a risk assessment model) the patients lifetime risk is 8.7% and her 10 year risk is 4.6%. According to the ACR, ACS, and NCCN guidelines, an annual breast MRI exam king g with mammogram is recommended if the patients lifetime risk is 20% or greater. This exam was interpreted at Station ID: [id number]. NOTE: For mammograms, a report in lay terms will be sent to the patient. Approximately 15% of breast malignancies will not be visualized mammographically. In the management of a palpable breast mass, a negative mammogram must not discourage biopsy of a clinically suspicious lesion. Electronically Signed By: Enedelia moore/vincent:10/01/2022 13:26:41 ACR BI-RADS Category 1: Negative 3341F PARENCHYMAL PATTERN: (A) - The breast(s) demonstrate(s) scattered fibroglandular densities. BI-RADS CATEGORY: (1) - 1 RECOMMENDATION: (ANNUAL) - Recommend routine annual screening mammography. [id number] 1 year screening LATERALITY: (B)
== END 2022-10-01 07:57 | disposition home or self-care (01) ==
LOC: DI.S 07:56
DX: Z12.31 Encounter for screening mammogram for malignant neoplasm of breast (principal); Z80.3 Family history of malignant neoplasm of breast

== ENCOUNTER 2022-12-26 16:42 | Outpatient (CLI) | payer MEDICARE, MEDICAID ==
--- NOTE | 2022-12-26 18:43 | XRAY Report ---
PROCEDURE: Knee 3 View LT INDICATIONS: LEFT KNEE PAIN TECHNIQUE: 3 views of the left knee(s) were acquired. COMPARISON: None. FINDINGS: Bones: No fractures or dislocations. No suspicious bony lesions. Soft tissues: No knee joint effusion. No suspicious soft tissue calcifications or masses. IMPRESSION: No acute bony abnormality. Reviewed by: Raul Guidry MD on 12/26/2022 5:41 PM AKTOM Approved by: Raul Guidry MD on 12/26/2022 5:41 PM AKDT Station ID: [id number]
== END 2022-12-26 23:59 | disposition home or self-care (01) ==
LOC: DI.S 16:42
PROVIDERS: ATTEND Physician Assistant
DX: S80.02XA Contusion of left knee, initial encounter (principal)

== ENCOUNTER 2023-04-10 08:00 | Outpatient (CLI) | payer MEDICARE, MEDICAID ==
[2023-04-10 20:48] LABS: BILIRUBIN,URINE NEGATIVE (NEGATIVE); GLUCOSE, URINE (UA) NEGATIVE (NEGATIVE); KETONES,URINE (UA) NEGATIVE (NEGATIVE); LEUKOCYTE ESTERASE, URINE SMALL (NEGATIVE); NITRITE,URINE NEGATIVE (NEGATIVE); OCCULT BLOOD,URINE TRACE-INTA (NEGATIVE); PH,URINE 5.5 PH (5.0-7.5); PROTEIN,URINE NEGATIVE (NEGATIVE); UROBILINOGEN,URINE 0.2 (NORMAL) E.U./dL (NORMAL)
[2023-04-10 20:50] LABS: CLARITY,URINE CLEAR (CLEAR)
[2023-04-10 21:36] LABS: BACTERIA,URINE Moderate /HPF (None Seen); RBC,URINE 0-5 /HPF (0-5); SQUAMOUS EPITHELIAL CELL,UR RARE Squamous (<= Few); WBC,URINE >25 /HPF (0-5)
== END 2023-04-10 23:59 | disposition home or self-care (01) ==
LOC: LAB 08:00
PROVIDERS: ATTEND Emergency Medicine
DX: R39.15 Urgency of urination (principal); R30.0 Dysuria
CPT/HCPCS: 81001

== ENCOUNTER 2023-04-28 12:34 | Outpatient (CLI) | payer MEDICARE, MEDICAID ==
[2023-04-28 15:29] LABS: BILIRUBIN,URINE NEGATIVE (NEGATIVE); GLUCOSE, URINE (UA) NEGATIVE (NEGATIVE); KETONES,URINE (UA) NEGATIVE (NEGATIVE); LEUKOCYTE ESTERASE, URINE SMALL (NEGATIVE); NITRITE,URINE NEGATIVE (NEGATIVE); OCCULT BLOOD,URINE NEGATIVE (NEGATIVE); PROTEIN,URINE NEGATIVE (NEGATIVE); UROBILINOGEN,URINE 0.2 (NORMAL) E.U./dL (NORMAL)
[2023-04-28 16:03] LABS: CLARITY,URINE CLOUDY (CLEAR)
[2023-04-28 16:10] LABS: BACTERIA,URINE Few /HPF (None Seen); EPITHELIAL CELLS,UR None Seen /HPF (<= Few); RBC,URINE 0-5 /HPF (0-5)
[2023-04-28 16:11] LABS: SQUAMOUS EPITHELIAL CELL,UR NONE SEEN (<= Few)
== END 2023-04-28 12:35 | disposition home or self-care (01) ==
LOC: LAB.S 12:34
PROVIDERS: ATTEND Emergency Medicine
DX: N39.0 Urinary tract infection, site not specified (principal)
CPT/HCPCS: 81001; 87077; 87086; 87181

== ENCOUNTER 2023-05-02 08:00 | Outpatient (CLI) | payer MEDICARE, MEDICAID ==
[2023-05-02 19:52] LABS: BILIRUBIN,URINE NEGATIVE (NEGATIVE); GLUCOSE, URINE (UA) NEGATIVE (NEGATIVE); KETONES,URINE (UA) NEGATIVE (NEGATIVE); LEUKOCYTE ESTERASE, URINE MODERATE (NEGATIVE); NITRITE,URINE NEGATIVE (NEGATIVE); OCCULT BLOOD,URINE NEGATIVE (NEGATIVE); PROTEIN,URINE TRACE mg/dL (NEGATIVE); UROBILINOGEN,URINE 0.2 (NORMAL) E.U./dL (NORMAL)
[2023-05-02 19:54] LABS: CLARITY,URINE HAZY (CLEAR)
[2023-05-02 20:18] LABS: WBC,URINE >25 /HPF (0-5)
[2023-05-02 20:19] LABS: BACTERIA,URINE Moderate /HPF (None Seen); RBC,URINE 0-5 /HPF (0-5); SQUAMOUS EPITHELIAL CELL,UR FEW Squamous (<= Few)
== END 2023-05-02 23:59 | disposition home or self-care (01) ==
LOC: LAB.S 08:00
PROVIDERS: ATTEND Emergency Medicine
DX: N39.0 Urinary tract infection, site not specified (principal)
CPT/HCPCS: 81001; 87086

== ENCOUNTER 2023-05-12 13:22 | Outpatient (CLI) | payer MEDICARE, MEDICAID ==
[2023-05-12 20:11] LABS: BILIRUBIN,URINE NEGATIVE (NEGATIVE); GLUCOSE, URINE (UA) NEGATIVE (NEGATIVE); KETONES,URINE (UA) NEGATIVE (NEGATIVE); LEUKOCYTE ESTERASE, URINE MODERATE (NEGATIVE); NITRITE,URINE NEGATIVE (NEGATIVE); OCCULT BLOOD,URINE NEGATIVE (NEGATIVE); PROTEIN,URINE 30 mg/dL (NEGATIVE); UROBILINOGEN,URINE 0.2 (NORMAL) E.U./dL (NORMAL)
[2023-05-12 20:13] LABS: BACTERIA,URINE None Seen /HPF (None Seen); CLARITY,URINE CLEAR (CLEAR); RBC,URINE 0-5 /HPF (0-5); SQUAMOUS EPITHELIAL CELL,UR RARE Squamous (<= Few)
== END 2023-05-12 13:23 | disposition home or self-care (01) ==
LOC: LAB.S 13:22
PROVIDERS: ATTEND Emergency Medicine
DX: N39.0 Urinary tract infection, site not specified (principal)
CPT/HCPCS: 81001; 87086

== ENCOUNTER 2023-06-01 12:24 | Outpatient (CLI) | payer MEDICARE, MEDICAID | END 2023-06-01 12:25 | disposition home or self-care (01) | LOC: LAB.R 12:24 | PROVIDERS: ATTEND Emergency Medicine | DX: Z53.9 Procedure and treatment not carried out, unspecified reason (principal) | CPT/HCPCS: 87493 ==

== ENCOUNTER 2023-11-28 08:00 | Outpatient (CLI) | payer MEDICARE, MEDICAID | END 2023-11-28 08:01 | disposition home or self-care (01) | LOC: LAB.S 08:00 | PROVIDERS: ATTEND Emergency Medicine | DX: R05.9 Cough, unspecified (principal) ==

== ENCOUNTER 2023-12-09 14:55 | Outpatient (CLI) | payer MEDICARE ==
--- NOTE | 2023-12-11 09:41 | Mammography Report ---
BILATERAL DIGITAL SCREENING MAMMOGRAM 3D/2D: 12/09/2023 CLINICAL: Routine screening. Family history of breast cancer. Comparison is made to exams dated: 10/01/2022 mammogram, 08/10/2021 mammogram, and 08/14/2017 mammogr am - [facility]. There are scattered areas of fibroglandular density in both breasts (category b / 25%-50% glandular t issue). No significant masses, calcifications, or other findings are seen in either breast. There has been no significant interval change. IMPRESSION: NEGATIVE There is no mammographic evidence of malignancy. A 1 year screening mammogram is recommended. Based on the Tyrer Cuzick model (a risk assessment model) the patient's lifetime risk is 8.3% and her 10 year risk is 4.6%. According to the ACR, ACS, and NCCN guidelines, an annual breast MRI exam king g with mammogram is recommended if the patient's lifetime risk is 20% or greater. This exam was interpreted at Station ID: [id number]. NOTE: For mammograms, a report in lay terms will be sent to the patient. Approximately 15% of breast malignancies will not be visualized mammographically. In the management of a palpable breast mass, a negative mammogram must not discourage biopsy of a clinically suspicious lesion. Electronically Signed By: Ivory guerrero/vincent:12/10/2023 13:12:52 letter sent: No_Letter ACR BI-RADS Category 1: Negative 3341F PARENCHYMAL PATTERN: (A) - The breast(s) demonstrate(s) scattered fibroglandular densities. BI-RADS CATEGORY: (1) - 1 RECOMMENDATION: (ANNUAL) - Recommend routine annual screening mammography. [id number] 1 year screening LATERALITY: (B)
== END 2023-12-09 14:56 | disposition home or self-care (01) ==
LOC: DI.S 14:55
PROVIDERS: ATTEND Registered Nurse
DX: Z12.31 Encounter for screening mammogram for malignant neoplasm of breast (principal); R92.323 Mammographic fibroglandular density, bilateral breasts; Z80.3 Family history of malignant neoplasm of breast

== ENCOUNTER 2023-12-15 09:41 | Outpatient (CLI) | payer MEDICARE ==
--- NOTE | 2023-12-15 13:56 | CT Report ---
PROCEDURE: Lung Cancer Screen INDICATIONS: NICOTINE DEPENDENCE TECHNIQUE: A CT scan of the chest was performed. Intravenous contrast media was not administered. Images were re corded and evaluated at appropriate window settings. Reformats: axial MIP of the chest, coronal and s agittal. For radiation dose reduction, the following was used: automated exposure control, adjustment of mA and/or kV according to patient size. COMPARISON: CT chest dated 08/10/2021. FINDINGS: Image quality: Excellent. Prior cancer history: None known Lungs and pleura: No pleural effusions. No pneumothorax. No suspicious pulmonary nodules which requi re follow up. Mediastinum: Heart size is normal. No pericardial effusion. No large vessel abnormality. No mediastin al adenopathy by size criteria. Few scattered juxtapleural nodules less than 4 mm in size, benign. Chest wall and lower neck: Thyroid is unremarkable. No axillary or supraclavicular adenopathy by size . Bones: No aggressive osseous abnormality. Upper Abdomen: Distended, interposed colon. IMPRESSION: Lung RAD: 2. Benign Recommendation: Continue with LDCR in 12 months if meets criteria Non-Lung Significant Findings: None. Reviewed by: Abdirahman Jackson MD on 12/15/2023 1:55 PM PDT Approved by: Abdirahman Jackson MD on 12/15/2023 1:55 PM PDT Station ID: [id number]
== END 2023-12-15 09:42 | disposition home or self-care (01) ==
LOC: DI 09:41
PROVIDERS: ATTEND Registered Nurse
DX: Z12.2 Encounter for screening for malignant neoplasm of respiratory organs (principal); F17.200 Nicotine dependence, unspecified, uncomplicated

== ENCOUNTER 2024-04-06 08:09 | Day surgery (SDC) | payer MEDICARE ==
[2024-04-06] MEDS: LACTATED RINGERS 1,000 ML IV ONE (08:20)
[2024-04-06] MEDS ORDERED: PROPOFOL 500 MG/50 ML 500 MG/50 ML VIAL ONE (08:26)
[2024-04-06] MEDS ORDERED: LIDOCAINE-MPF 2% 5 ML VIAL ONE (08:41)
[2024-04-06] MEDS ORDERED: MIDAZOLAM 2 MG/2 ML VIAL ONE (09:08)
--- NOTE | 2024-04-06 09:12 | ANESTHESIA ---
Pre-Anesthesia VS, & Labs - Diagnosis Barretts/Abd pain - Procedure egd/colonoscopy Vital Signs: Temp Pulse Resp BP Pulse Ox O2 Flow Rate 36.1 C L 67 16 118/62 96 04/06/24 08:33 04/06/24 08:33 04/06/24 08:33 04/06/24 08:33 04/06/24 08:33 Height: 5 ft 2 in Weight (kg): 75.1 kg Body Mass Index: 30.2 BMI Classification: Obese - NPO Last Fluid Intake: 0400 Last Food Intake: >8hr - Is Patient ?: No Home Medications and Allergies Home Medications: Ambulatory Orders Baclofen [Lioresal] 10 mg PO TID 03/30/24 Valbenazine Tosylate [Ingrezza] 40 mg PO DAILY 03/30/24 amLODIPine [Norvasc] 10 mg PO DAILY 03/30/24 Omeprazole [Prilosec] 40 mg PO DAILY 05/22/13 Trazodone HCl 300 mg PO HS 05/22/13 Venlafaxine ER [Effexor ER] 225 mg PO DAILY 05/22/13 Alprazolam [Xanax] 1 mg PO TID 01/28/18 Atorvastatin [Lipitor] 80 mg PO DAILY 04/24/21 Baclofen [Lioresal] 10 mg PO TID 03/30/24 Valbenazine Tosylate [Ingrezza] 40 mg PO DAILY 03/30/24 amLODIPine [Norvasc] 10 mg PO DAILY 03/30/24 Allergies/Adverse Reactions: Allergies Allergy/AdvReac Type Severity Reaction Status Date / Time citalopram Allergy Respiratory Verified 04/06/24 08:43 topiramate [From Topamax] Allergy Respiratory Verified 04/06/24 08:43 ziprasidone [From Geodon] Allergy Unknown Verified 04/06/24 08:48 ciprofloxacin [From Cipro] AdvReac Unknown Verified 04/06/24 08:43 fluticasone [From Flonase] AdvReac Rash Verified 04/06/24 08:43 Sulfa (Sulfonamide AdvReac Nausea Verified 04/06/24 08:43 Antibiotics) Anes History & Medical History - Anesthetic History Anesthesia Complications: reports: No previous complications (did"wake up" during a colonoscopy; had fent/versed/prop last time, denies problems w ptsd wakeups) - Medical History Cardiovascular: reports: Hypertension, High cholesterol Pulmonary: reports: COPD, Pneumonia, Sleep apnea, CPAP use Gastrointestinal: reports: GERD, Colon polyps, Chronic constipation, Other Urinary: reports: None, Incontinence, Chronic bladder infection, Frequency Neuro: reports: None Musculoskeletal: reports: Osteoarthritis, Chronic back pain Endocrine/Autoimmune: reports: None Skin: reports: None, Other Smoking Status: Current every day smoker (vaping) Psychosocial: reports: No issues indicated - Surgical History Urologic: reports: Bladder surgery Orthopedic: reports: Knee replacement, Spine surgery Results - EKG Results EKG Comparison: Reviewed EKG Exam General: Alert, Oriented x3 Dental: Dentures full Upper, Partials Lower Mouth Openin Fingerbreadth Neck Mobility: Normal Mallampati classification: II Thyromental Distance: 4-6 cm Plan Anesthesia Type: Total IV Consent for Procedure(s) Verified and Reviewed: Yes Code Status: Attempt Resuscitation ASA classification: 3-Severe systemic disease Is this case an emergency?: No
[2024-04-06] MEDS ORDERED: TETRACAINE/BENZOCAINE/BUTAMBEN 5 GM BOTTLE ONE (09:27)
[2024-04-06] MEDS: BENZOCAINE/TETRACAINE/BUTAMBEN 20 GM TOP ONE (09:37)
[2024-04-06] MEDS ORDERED: PROPOFOL 200 MG/20 ML VIAL IVP ONE (10:18)
[2024-04-06] MEDS: LACTATED RINGERS 50 ML IV ONE (10:41)
--- NOTE | 2024-04-06 10:51 | ANESTHESIA POST OP EVALUATION ---
Anesthesia Post Eval - Post Anesthesia Eval Vitals: Last Vital Signs Temp 36.1 C L 04/06/24 08:33 Pulse 67 04/06/24 08:33 Resp 16 04/06/24 08:33 BP 118/62 04/06/24 08:33 Pulse Ox 96 04/06/24 08:33 O2 Flow Rate CV Function Including HR & BP: Stable Pain Control: Satisfactory Nausea & Vomiting: Negative Mental Status: Baseline Respiratory Status: Airway Patent Hydration Status: Satisfactory Anesthesia Complications: None
[2024-04-06 11:03] VITALS: BP 108/68; O2SAT 98
[2024-04-06] MEDS ORDERED: GLYCOPYRROLATE 1 MG/5 ML VIAL ONE (11:16)
== END 2024-04-06 08:10 | disposition home or self-care (01) ==
LOC: SDS 08:09
PROVIDERS: ATTEND Surgery
PROC: 0DBL8ZZ Excision of Transverse Colon, Via Natural or Artificial Opening Endoscopic (ICD-10-PCS; 2024-04-06)
PROC: 0DB48ZX Excision of Esophagogastric Junction, Via Natural or Artificial Opening Endoscopic, Diagnostic (ICD-10-PCS; principal; 2024-04-06 09:30)
PROC: 0DB78ZX Excision of Stomach, Pylorus, Via Natural or Artificial Opening Endoscopic, Diagnostic (ICD-10-PCS; 2024-04-06 09:30)
DX: Z12.11 Encounter for screening for malignant neoplasm of colon (principal); D12.3 Benign neoplasm of transverse colon; K57.30 Diverticulosis of large intestine without perforation or abscess without bleeding; K22.70 Barrett's esophagus without dysplasia; E66.9 Obesity, unspecified; Z68.30 Body mass index [BMI] 30.0-30.9, adult; J44.9 Chronic obstructive pulmonary disease, unspecified; F17.290 Nicotine dependence, other tobacco product, uncomplicated; G47.30 Sleep apnea, unspecified
CPT/HCPCS: 43239; 45380; A9270; J7120

== ENCOUNTER 2024-04-14 10:24 | Outpatient (CLI) | payer MEDICARE ==
--- NOTE | 2024-04-14 11:22 | SLEEP CARE CONSULTATION ---
Information from patient questionnaire entered by Massiel Berry. I have reviewed and concur with the information entered by Massiel Berry. This document represents the service I personally performed and the decisions made by me, Isabelle Yuen ARNP. History of Present Illness Service Date and Time: 04/14/2024 1024 Reason for Visit: New patient, Previously diagnosed sleep apnea, sleep apnea on CPAP therapy (on BiPAP) Chief Complaint: reports: Unrefreshed sleep, Snoring, Excessive daytime sleepiness, Frequent awakenings at night, Other (UPDATE SUPPLIES) Date of Onset: 20+YRS Usual bedtime: [id number] Time it takes to fall asleep: NOT LONG Snores at night: Yes Observed to quit breathing while asleep: Yes Sleeps alone due to snoring: No Number of times waking at night: 3 Reasons for waking at night: reports: Snoring, Gasping for air, Bathroom Toss, Turn, or Twitch while sleeping: Yes Recalls having dreams: Yes Feels refreshed in the morning: No Morning headache: No Sleepy or fatigued during the day: Yes Ever fallen asleep while driving: No Takes day naps: Yes (occasionally) Dreams during day naps: No Prior sleep studies: Yes Year and Where: [address] Bee Additional HPI information: CEDRICK TA was previously diagnosed to have moderate, AHI 26, obstructive sleep apnea-hypopnea syndrome in a study dated 11/20/2010 through [facility] and comes in today to establish carea for CPAP therapy. - Parasomnia Symptoms Ever been unable to move upon waking from sleep: No Walks in sleep: Yes Talks in sleep: Yes Ever acted out dreams in sleep: No Ever felt weak in the knees when startled or emotional: No Bothered by creepy, crawly, restless sensations in legs: No Problems with memory or concentration: Yes CPAP Compliance Data - Data Reviewed with Patient Average duration of nightly device use: 5.8 hours Compliance rate %: 61 (110/180 days used in last 6 months) Current pressure setting (cmH2O): 10-20 (avg pressure 11.3) Average residual AHI: 5.5 Central apnea: 1.3 Compliance data discussion: She has a [employer] Airsense 10 Autoset For Her set up 04/04/2020. She has been using a nasal pillows mask but did not like it. She wants to go back to a nasal cushion (over the nose) mask. She has been buying her supplies online and needs a new DME. Subjective Missed days of use due to: reports: mask issues Patient concerns: reports: mask discomfort, air blowing in eyes, mask leak noise, condensation in mask/hose. denies: aerophagia, nasal congestion, dry mouth, nose, throat, epistaxis Observed to snore while using device: No Current pressure setting perceived as: too low On therapy, patient: reports: sleeping better, awakening more refreshed, being more awake and alert during the day, more rested overall. denies: drowsiness while driving Initial [place] Sleepiness Scale score: 13 (04/14/24) Past Medical History Past Medical History: reports: Hypertension, Anxiety, Depression, GERD, Other (STROKE 2020) Social History The patient's occupation is a RETIRED. Patient is Legally and lives in . Have you smoked in the past 12 months: No Alcohol use: No Caffeine use: Yes Caffeine amount and frequency: 6-8 A DAY Family History Family history of sleep disordered breathing: No Allergies and Home Medications Known drug allergies: Yes ( LISTED) Drug allergies reviewed: Yes Home medication list reviewed: Yes (as listed) Allergy and home medication list: Allergies citalopram Allergy (Verified 04/14/24 10:27) Respiratory topiramate [From Topamax] Allergy (Verified 04/14/24 10:27) Respiratory ziprasidone [From Geodon] Allergy (Verified 04/14/24 10:27) Unknown ciprofloxacin [From Cipro] Adverse Reaction (Verified 04/14/24 10:27) Unknown fluticasone [From Flonase] Adverse Reaction (Verified 04/14/24 10:27) Rash Sulfa (Sulfonamide Antibiotics) Adverse Reaction (Verified 04/14/24 10:27) Nausea Home Medications Medication Instructions Recorded Confirmed Last Taken Type Omeprazole [Prilosec] 40 mg PO DAILY 05/22/13 04/14/24 04/06/24 History Trazodone HCl 300 mg PO HS 05/22/13 04/14/24 04/05/24 History Venlafaxine ER [Effexor ER] 225 mg PO DAILY 05/22/13 04/14/2424 History Alprazolam [Xanax] 1 mg PO TID 01/28/18 04/14/24 04/06/24 History Atorvastatin [Lipitor] 80 mg PO DAILY 04/24/21 04/14/24 04/05/24 History Baclofen [Lioresal] 10 mg PO TID 03/30/24 04/14/24 04/06/24 History Valbenazine Tosylate [Ingrezza] 40 mg PO DAILY 03/30/24 04/14/24 04/05/24 History amLODIPine [Norvasc] 10 mg PO DAILY 03/30/24 04/14/24 04/05/24 History Review of Systems Weight loss over past 5 years: 45 lb loss in last 6 months Cardiovascular: reports: high blood pressure Gastrointestinal: reports: heartburn, abdominal pain Urinary: reports: incontinence Psychiatric: reports: anxiety, depression Ear/Nose/Throat: reports: nasal congestion, dry mouth/throat, wisdom teeth removed Endocrine: reports: too hot or cold, excessive thirst, increased urination Musculoskeletal: reports: joint pain, neck pain, back pain, muscle pain or cramping Immunologic: reports: sneezing Physical Exam Vital signs obtained and entered by: MASSIEL Melissa MA Blood Pressure: 164/82 (RIGHT ARM) Cuff size: regular Heart Rate: 68 O2 Saturation: 98 Height: 5 ft 2 in Weight: 164 lb Body Mass Index: 29.9 BMI Classification: Overweight Neck circumference: 15.5 Heart: regular rate and rhythm Lungs: clear bilaterally Impression and Plan 1. Obstructive Sleep Apnea-Hypopnea Syndrome, moderate, with fair treatment compliance and fair apnea control with elevated residual AHI. On CPAP therapy, the patient has better sleep quality and is more rested overall. She feels like the pressure is too low and her residual AHI is at 5.5. The patients pressure will be changed to autoCPAP 12-20 cmH20 for elevation of residual AHI. Patient advised to contact me if pressure change is uncomfortable so that it can be adjusted. Goals for apnea control discussed. She would like to be set up for a new DME to get CPAP supplies. I will have my back up scan coordinator inform of DME options. A DWO prescription will then be made. Patient advised to contact this office if further supply problems. Patient's apnea severity and rationale for treatment to reduce apnea, improve sleep quality and reduce cardiovascular and cerebrovascular events was reviewed. I also reviewed the benefit of consistent device use of CPAP for hypertension, cerebrovascular disease, gastric reflux, depression/anxiety. 2. Overweight, unspecified. Currently patients BMI is 29.9. She has been losing weight in the last 6 months. She has been receiving injections of Tirzepatide as prescribed by her doctor. Obesity increases the risk of apnea, CPAP pressure requirements and overall health risks especially cardiovascular and diabetes. Thus patient is advised to continue to try to lose weight. * Transfer DME * Patient given Mirage FX, standard size to try at home * Change auto CPAP pressure to 12-20 cmH2O * Update supply prescription * Notify me if snoring with mask or feeling that the pressure is too much or too little * Continue to try to lose weight * Call this office if any problems using CPAP * Return for follow up in 3 months, or sooner if concerns arise Adjust device pressure to (cmH2O): 12-20 Counseling Topics: Weight loss health impact Prescriptions: Device supplies Follow up with [facility] Care in: 3 months Visit Type: In Office Time Spent with Patient (minutes): 37 Provider Statement: I spent 100% of the Face to Face Visit with the patient with greater than 50% spent counseling the patient and coordination of care.
[2024-04-14 11:28] VITALS: BP 164/82; O2SAT 98
== END 2024-04-14 10:25 | disposition home or self-care (01) ==
LOC: SC 10:24
PROVIDERS: ATTEND Nurse Practitioner Family
DX: G47.33 Obstructive sleep apnea (adult) (pediatric) (principal); E66.3 Overweight; Z68.29 Body mass index [BMI] 29.0-29.9, adult
CPT/HCPCS: 99203; G0463; 99212

== ENCOUNTER 2024-11-20 11:29 | Inpatient (IN) ==
--- NOTE | 2024-11-20 11:45 | ED Physician Documentation ---
History of Present Illness Stated complaint Stated Complaint: UNRESPONSIVE Chief complaint Chief Complaint: General History obtained from History obtained from: EMS Additonal information Additional information: 69-year-old female brought in by EMS after reported trazodone overdose. She apparently was [place] at the park with an empty bottle of trazodone next to her. The trazodone was filled about 2 weeks ago. They are 300 mg tabs. Unknown if any coingestants. EMS states that her mental status was very diminished at the scene. She began to have difficulty breathing therefore was intubated. They gave her ketamine, fentanyl and succinylcholine. They attempted a dose of Narcan prior to intubation which did not have any effect. Apparently the patient's is on the way to the emergency department. No other history available at this time Review of Systems Status of ROS: unobtainable due to endotracheal tube Meds/Allgy Home Medications Ambulatory Orders Medication Instructions Recorded Confirmed omeprazole 40 mg capsule,delayed 40 mg PO DAILY 05/22/13 11/12/24 release (Prilosec) venlafaxine 75 mg capsule,extended 225 mg PO DAILY 05/22/13 11/12/24 release 24 hr alprazolam 1 mg tablet (Xanax) 1 mg PO TID 01/28/18 11/12/24 amlodipine 10 mg tablet (Norvasc) 10 mg PO QDAY 09/24/24 11/12/24 atorvastatin 80 mg tablet (Lipitor) 80 mg PO QPM 09/24/24 11/12/24 baclofen 20 mg tablet 20 mg PO TID 09/24/24 11/12/24 perphenazine 8 mg tablet 8 mg PO BID 09/24/24 11/12/24 trazodone 300 mg tablet 300 mg PO QDAY 09/24/24 11/12/24 valbenazine 40 mg capsule 40 mg PO QDAY 09/24/24 11/12/24 (Ingrezza) venlafaxine 150 mg 150 mg PO BID 09/24/24 11/12/24 capsule,extended release 24 hr Allergies Allergies Allergy/AdvReac Type Severity Reaction Status Date / Time citalopram Allergy Respiratory Verified 11/12/24 14:10 topiramate (From Topamax) Allergy Respiratory Verified 11/12/24 14:10 ziprasidone (From Geodon) Allergy Unknown Verified 11/12/24 14:10 ciprofloxacin (From Cipro) AdvReac Unknown Verified 11/12/24 14:10 fluticasone (From Flonase) AdvReac Rash Verified 11/12/24 14:10 Sulfa (Sulfonamide AdvReac Nausea Verified 11/12/24 14:10 Antibiotics) PFSH Active Problems All Active Problems (Updated 11/20/24 @ 16:10 by Alexander Hernandez MD) Overdose of trazodone (Acute) Respiratory failure (Acute) Overdose (Acute) Arm paresthesia, left (Acute) Encounter for general adult medical examination without abnormal findings (Chronic) Incontinence in female (Chronic) Edentulous (Chronic) Presbycusis (Chronic) Sleep apnea (Chronic) Gastric reflux (Chronic) Hyperlipidemia (Chronic) Anxiety and depression (Chronic) PTSD (post-traumatic stress disorder) (Chronic) Tardive dyskinesia (Chronic) Nicotine use disorder (Chronic) COPD (chronic obstructive pulmonary disease) (Chronic) Constipation (Chronic) Medical History Medical History (Updated 11/20/24 @ 16:10 by Alexander Hernandez MD) Fracture of right knee region microfracture, right 18 months rehab because of cartilage defects Surgical History Surgical History (Updated 09/24/24 @ 09:55 by Tamanna Girard MA) Meningioma, spinal (2019) S/p total knee replacement, bilateral [id number] [facility] H/O midurethral sling procedure Family History Family History (Updated 09/24/24 @ 09:56 by Tamanna Girard MA) Mother Heart attack Cancer Social History Social History Smoking Status: Smoker current status unk If you are a former smoker, when did you quit? (Date/Year): 5 yrs ago How many cigarettes a day do you smoke? (20 cigarettes=1 Pk): 1 Do you dip or chew tobacco?: No Do you vape?: Yes Smoking Status Details: states she vapes nicotine Relationship: Spouse Level: Independent Do you feel safe in your home environment?: Yes Suffered physical, verbal, emotional, or financial abuse?: No History of Abuse: No Substance Use: denies use Are you sexually active?: No Exam Constitutional Intubated female HENMT normocephalic and head/scalp atraumatic Eyes PERRL Neck/C-Spine trachea midline Respiratory Intubated, breath sounds greater on the right than the left Cardiovascular normal heart rate noted and regular rhythm noted Gastrointestinal abdomen soft to palpation and nondistended Extremities No edema Neurology Intubated, unresponsive Skin skin color normal Results Vitals Vitals: Vital Signs - 24 hr 11/20/24 11:34 11/20/24 11:49 11/20/24 12:06 Temperature 37 C Temperature Source Core Pulse Rate 87 86 66 Respiratory Rate 16 16 Blood Pressure 97/53 L 116/63 O2 Saturation 97 Oxygen Delivery Method O2 Source Mechanical ventilator Mechanical ventilator Fraction of Inspired Oxygen (FIO2) 100 Pain Intensity 0 0 11/20/24 12:11 11/20/24 12:19 11/20/24 12:21 Temperature 37.6 C 37.6 C Temperature Source Core Core Pulse Rate 64 59 L 58 L Respiratory Rate 166 H 16 16 Blood Pressure 95/54 L 90/56 L 93/56 L O2 Saturation 98 98 98 Oxygen Delivery Method O2 Source Mechanical ventilator Mechanical ventilator Mechanical ventilator Fraction of Inspired Oxygen (FIO2) Pain Intensity 0 0 0 11/20/24 12:25 11/20/24 12:26 11/20/24 12:34 Temperature 37.6 C 37.5 C Temperature Source Rectal Core Pulse Rate 56 L 57 L Respiratory Rate 16 16 Blood Pressure 90/55 L 123/67 O2 Saturation 98 98 Oxygen Delivery Method Mechanical Ventilator O2 Source Mechanical ventilator Mechanical ventilator Fraction of Inspired Oxygen (FIO2) Pain Intensity 0 0 11/20/24 12:40 11/20/24 12:59 11/20/24 13:00 Temperature 37.5 C 37.3 C Temperature Source Core Core Pulse Rate 55 L 52 L Respiratory Rate 16 16 Blood Pressure 105/55 L 113/57 L O2 Saturation 98 99 Oxygen Delivery Method O2 Source Mechanical ventilator Mechanical ventilator Fraction of Inspired Oxygen (FIO2) 30 Pain Intensity 0 0 Oxygen O2 Source Mechanical ventilator EKG (time done) 1217: EKG releavant findings:: EKG personally interpreted by author of this note. Relevant findings are: Rate: Other (59 bpm, NSR, normal axis, flat t waves. ) Labs Labs: Laboratory Tests 11/20/24 11/20/24 11/20/24 11:35 12:05 13:05 WBC 7.9 RBC 4.62 Hgb 11.4 L Hct 37.4 MCV 81.0 MCH 24.7 L MCHC 30.5 L RDW 18.6 H Plt Count 261 MPV 9.8 Neut # (Auto) 7.0 H Lymph # (Auto) 0.5 L [place] # (Auto) 0.3 Eos # (Auto) 0.0 Baso # (Auto) 0.0 Absolute Nucleated RBC 0.00 Nucleated RBC % 0.0 Sodium 141 Potassium 3.8 Chloride 108 Carbon Dioxide 25 Anion Gap 8.0 BUN 15 Creatinine 0.9 Estimated GFR (MDRD) 62 L Glucose 144 H Calcium 8.7 Magnesium 1.9 Total Bilirubin 0.3 AST 24 ALT 27 Alkaline Phosphatase 64 Total Creatine Kinase 751 H Total Protein 6.0 L Albumin 4.0 Globulin 2.0 L Albumin/Globulin Ratio 2.0 Lipase 11 TSH 0.17 L Urine Color DARK YELLOW Urine Clarity CLEAR Urine pH 5.5 Ur Specific [place] >=1.030 H Urine Protein >=300 H Urine Glucose (UA) NEGATIVE Urine Ketones NEGATIVE Urine Occult Blood NEGATIVE Urine Nitrite NEGATIVE Urine Bilirubin NEGATIVE Urine Urobilinogen 0.2 (NORMAL) Ur Leukocyte Esterase NEGATIVE Urine RBC 0-5 Urine WBC 0-3 Ur Squamous Epith Cells NONE SEEN Urine Crystals 6-10 Calcium Oxalate Urine Bacteria Few Ur Microscopic Review INDICATED Urine Culture Comments NOT INDICATED Nasal Screen MRSA (PCR) NEGATIVE Salicylates < 1.5 Urine Opiates Screen NEGATIVE Ur Buprenorphine Scrn NEGATIVE Ur Oxycodone Screen NEGATIVE Urine Methadone Screen NEGATIVE Acetaminophen 0.1 Ur Barbiturates Screen NEGATIVE Ur Tricyclics Screen NEGATIVE Ur Phencyclidine Scrn NEGATIVE Ur Amphetamine Screen NEGATIVE U Methamphetamines Scrn POSITIVE H U Benzodiazepines Scrn POSITIVE H Urine Cocaine Screen NEGATIVE U Cannabinoids Screen NEGATIVE Ur Drug Screen Comment CUTOFF CONC BELOW: Ethyl Alcohol < 10.0 PD Medical Decision Making ED course Complexity details: reviewed results, re-evaluated patient and considered differential ED course: 69-year-old female with what appears to be an intentional overdose today. Found at a local park with an empty bottle of trazodone next to her, 300 mg tabs. Intubated by EMS for altered mental status and respiratory failure. Started on propofol here. IV fluids given for hypotension. Discussed the case with poison control. Recommend magnesium of 2, calcium of 9 and potassium of 4 and to try to keep those electrolytes around to those levels. She did have mild hypomagnesemia also magnesium given. She has mildly hypocalcemic but also has a low protein. QT is under 500 on EKG. Initial intubation by EMS was a right mainstem intubation, ET tube was repositioned. and daughter arrived in the emergency department. states he had an argument with her at around 430 yesterday he then came home around 11:00 last night. He states that she was not there but her puppy was in a kennel. He states that around 530 this morning she still was not home so he called the police. Daughter states that she spoke to her around 530 last night. They report prior suicide attempt approximately 14 years ago. They are going to go to her car and see if there are any other medications missing. Discussed the case with the hospitalist Dr. Hernandez who accepts This document was made in part using voice recognition software. While efforts are made to proofread this document, sound alike and grammatical errors may occur. Critical Care Time(min): 35 Time Includes: Direct patient care and Review records Data interpretation: Labs Procedures included in critical care time: See progress note Procedures excluded from critical care time: See progress note Discharge Plan Discharge Patient Disposition: 66 [facility] DC/Xfer Condition: Stable Clinical Impression: Overdose Qualifiers: Encounter type: initial encounter Injury intent: undetermined intent Qualified Code(s): T50.904A - Poisoning by unspecified drugs, medicaments and biological substances, undetermined, initial encounter Respiratory failure Qualifiers: Chronicity: acute Respiratory failure complication: unspecified whether with hypoxia or hypercapnia Qualified Code(s): J96.00 - Acute respiratory failure, unspecified whether with hypoxia or hypercapnia Interventions: ED Admission Assessment Last Done: 11/20/24 13:16
[2024-11-20 11:49] LABS: BASOPHILS % (AUTO) 0.3 %; HCT - HEMATOCRIT 37.4 % (37.0-47.0); HGB - HEMOGLOBIN 11.4 g/dL (12.0-16.0); LYMPHOCYTES # (AUTO) 0.5 10^3/uL (1.5-3.5); MEAN CORPUSCULAR HEMOGLOBIN 24.7 pg (27.0-31.0); MEAN CORPUSCULAR HGB CONC 30.5 g/dL (32.0-36.0); MEAN PLATELET VOLUME 9.8 fL (7.9-10.8); MONOCYTES # (AUTO) 0.3 10^3/uL (0.0-1.0); MONOCYTES % (AUTO) 3.9 %; NEUTROPHILS % (AUTO) 89.5 %; PLT - PLATELET COUNT 261 10^3/uL (130-450); RED BLOOD COUNT 4.62 10^6/uL (4.20-5.40); RED CELL DISTRIBUTION WIDTH 18.6 % (12.0-15.0); WHITE BLOOD COUNT 7.9 x10^3/uL (4.8-10.8)
[2024-11-20 12:07] LABS: ACETAMINOPHEN 0.1 ug/mL; ALKALINE PHOSPHATASE 64 IU/L (42-121); ALT ALANINE AMINOTRANSFERASE 27 IU/L (10-60); AST ASPARTATE AMINOTRANSFERASE 24 IU/L (10-42); BILIRUBIN,TOTAL 0.3 mg/dL (0.2-1.0); BUN - BLOOD UREA NITROGEN 15 mg/dL (6-20); CALCIUM 8.7 mg/dL (8.5-10.3); CARBON DIOXIDE - CO2 25 mmol/L (21-32); CHLORIDE 108 mmol/L (101-111); CK- CREATINE KINASE 751 IU/L (30-223); CREATININE 0.9 mg/dL (0.6-1.3); ETOH - ETHANOL < 10.0 mg/dL; GFR - MDRD 62 (>89); GLUCOSE 144 mg/dL (74-104); LIPASE 11 U/L (11-82); MAGNESIUM 1.9 mg/dL (1.7-2.3); POTASSIUM 3.8 mmol/L (3.5-4.5); SODIUM 141 mmol/L (135-145)
[2024-11-20] MEDS: PROPOFOL 1000 MG/100 ML 1,000 MG/100 ML BOTTLE IV STA (12:07)
[2024-11-20 12:08] LABS: SALICYLATE < 1.5 mg/dL
[2024-11-20 12:13] LABS: THYROID STIMULATING HORMONE 0.17 uIU/mL (0.34-5.60)
[2024-11-20 12:20] LABS: BILIRUBIN,URINE NEGATIVE (NEGATIVE); GLUCOSE, URINE (UA) NEGATIVE (NEGATIVE); KETONES,URINE (UA) NEGATIVE (NEGATIVE); LEUKOCYTE ESTERASE, URINE NEGATIVE (NEGATIVE); NITRITE,URINE NEGATIVE (NEGATIVE); OCCULT BLOOD,URINE NEGATIVE (NEGATIVE); PH,URINE 5.5 PH (5.0-7.5); PROTEIN,URINE >=300 mg/dL (NEGATIVE); UROBILINOGEN,URINE 0.2 (NORMAL) E.U./dL (NORMAL)
[2024-11-20 12:21] LABS: CLARITY,URINE CLEAR (CLEAR)
[2024-11-20 12:28] LABS: BENZODIAZEPINES SCREEN, URINE POSITIVE (NEGATIVE); COCAINE SCREEN URINE NEGATIVE (NEGATIVE); METHAMPHETAMINES SCREEN, URINE POSITIVE (NEGATIVE); THC CANNABINOID SCREEN, URINE NEGATIVE (NEGATIVE)
[2024-11-20 12:29] LABS: AMPHETAMINE SCREEN,URINE NEGATIVE (NEGATIVE); BARBITURATE SCREEN,UR NEGATIVE (NEGATIVE); BUPRENORPHINE SCREEN, URINE NEGATIVE (NEGATIVE); METHADONE SCREEN, URINE NEGATIVE (NEGATIVE); OPIATE SCREEN, URINE NEGATIVE (NEGATIVE); OXYCODONE SCREEN, URINE NEGATIVE (NEGATIVE); TRICYCLIC ANTIDEPRESSANT,URINE NEGATIVE (NEGATIVE)
--- NOTE | 2024-11-20 12:34 | XRAY Report ---
PROCEDURE: XR Chest for Line Placement INDICATIONS: LINE PLACEMENT TECHNIQUE: One view of the chest was acquired. COMPARISON: None. FINDINGS: Surgical changes and devices: Enteric tube tip and side port in the proximal stomach. Endotracheal t ube tip 4.1 cm above Jasmina. Lungs and pleura: No pleural effusions or pneumothorax. No consolidation. Mediastinum: Mediastinal contours appear normal. Heart size is normal. Bones and chest wall: No suspicious bony lesions. Overlying soft tissues appear unremarkable. IMPRESSION: Enteric tube tip and side port in the proximal stomach. Further advancement by 15-20 cm recommended. Reviewed by: Myron Lee MD on 11/20/2024 11:33 AM [facility] Approved by: Myron Lee MD on 11/20/2024 11:33 AM ZACH Station ID: [id number]
[2024-11-20 12:37] LABS: RBC,URINE 0-5 /HPF (0-5); WBC,URINE 0-3 /HPF (0-5)
[2024-11-20 12:38] LABS: BACTERIA,URINE Few /HPF (None Seen); CRYSTALS,URINE 6-10 Calcium Oxalate /LPF; SQUAMOUS EPITHELIAL CELL,UR NONE SEEN (<= Few)
[2024-11-20] MEDS: SODIUM CHLORIDE 0.9% 1,000 ML IV STA ×2 (12:41)
[2024-11-20] MEDS: MAGNESIUM SULFATE 2 GRAM 2 GM/50 ML BAG IV ONE (14:30)
[2024-11-20] MEDS: SODIUM CHLORIDE 0.9% 1,000 ML IV SCH (14:31)
[2024-11-20 15:22] LABS: ABG BASE EXCESS -0.4 mmol/L (-2.0-3.0); ABG HCO3 23.2 mmol/L (22.0-26.0); ABG OXYGEN SATURATION 99 % (95-98); ABG PCO2 31 mmHg (34-45); ABG PH 7.49 (7.35-7.45); ABG PO2 114 mmHg (83-108); ABG TCO2 24.1 mmol/L (21.0-29.0); ALLEN TEST POSITIVE
[2024-11-20 15:23] LABS: ABG MODE OF VENTILATION ASSIST/CONTROL; ABG RESPIRATORY RATE 16 b/min
--- NOTE | 2024-11-20 15:51 | HISTORY & PHYSICAL EXAMINATION ---
Chief Complaint Chief Complaint Chief Complaint: Results can patient found down, brought in intubated unable to assess chief History of Present Illness Admitted From Admitted From:: ED History Obtained From Records Reviewed: ED History obtained from: Dr Haskins, ED Attending Exam Limitations: Pt is sedated on ventilator History of Present Illness HPI Comment/Other: Patient is a 69-year-old female with a PMH of depression with prior suicide attempt 14 years ago (via drug overdose),GERD, HLD, HTN, tardive dyskinesia, who is brought to the ED after being found down at a local park where bystanders found her just prior to EMS arrival. EMS found her minimally responsive unable to protect her airway, and intubated her in the field and brought her to the ED. She was found nearby her car where a large number of pills and multiple medication bottles were found. Most remarkable of which was a large bottle of 300 mg trazodone tablets with most of the pills missing. It is suspected she overdosed on trazodone. Per patient's family, a suicide note was found in the patient's journal. Reportedly the patient had a fight with her ex- at around 4 PM, her daughter then heard from her by telephone at approximately 6 PM, then when she did not return home she was reported missing to the police. Her ex- was then able to track her location by her cell phone at which point they [place]. In the ED, chest x-ray was done to confirm ET tube. Routine labs were also drawn, with no significant abnormalities.CK was elevated over 700, methamphetamine and benzodiazepine screen were both positive (patient received fentanyl and Versed in the ambulance). Family was able to return to the patient's car where they found multiple bottles of pills and I was able to review her pill bottles to try to determine which she may have taken. In addition to the suspected overdose of multiple 300 mg trazodone pills she also had with her baclofen, duloxetine, gabapentin, perphenazine and amlodipine. Meds/Allgy Home Medications Ambulatory Orders Medication Instructions Recorded Confirmed omeprazole 40 mg capsule,delayed 40 mg PO DAILY 05/22/13 11/12/24 release (Prilosec) venlafaxine 75 mg capsule,extended 225 mg PO DAILY 05/22/13 11/12/24 release 24 hr alprazolam 1 mg tablet (Xanax) 1 mg PO TID 01/28/18 11/12/24 amlodipine 10 mg tablet (Norvasc) 10 mg PO QDAY 09/24/24 11/12/24 atorvastatin 80 mg tablet (Lipitor) 80 mg PO QPM 09/24/24 11/12/24 baclofen 20 mg tablet 20 mg PO TID 09/24/24 11/12/24 perphenazine 8 mg tablet 8 mg PO BID 09/24/24 11/12/24 trazodone 300 mg tablet 300 mg PO QDAY 09/24/24 11/12/24 valbenazine 40 mg capsule 40 mg PO QDAY 09/24/24 11/12/24 (Ingrezza) venlafaxine 150 mg 150 mg PO BID 09/24/24 11/12/24 capsule,extended release 24 hr Allergies Allergies Allergy/AdvReac Type Severity Reaction Status Date / Time citalopram Allergy Respiratory Verified 11/12/24 14:10 topiramate (From Topamax) Allergy Respiratory Verified 11/12/24 14:10 ziprasidone (From Geodon) Allergy Unknown Verified 11/12/24 14:10 ciprofloxacin (From Cipro) AdvReac Unknown Verified 11/12/24 14:10 fluticasone (From Flonase) AdvReac Rash Verified 11/12/24 14:10 Sulfa (Sulfonamide AdvReac Nausea Verified 11/12/24 14:10 Antibiotics) PFSH Active Problems All Active Problems (Updated 11/20/24 @ 16:10 by Alexander Hernandez MD) Overdose of trazodone (Acute) Respiratory failure (Acute) Overdose (Acute) Arm paresthesia, left (Acute) Encounter for general adult medical examination without abnormal findings (Chronic) Incontinence in female (Chronic) Edentulous (Chronic) Presbycusis (Chronic) Sleep apnea (Chronic) Gastric reflux (Chronic) Hyperlipidemia (Chronic) Anxiety and depression (Chronic) PTSD (post-traumatic stress disorder) (Chronic) Tardive dyskinesia (Chronic) Nicotine use disorder (Chronic) COPD (chronic obstructive pulmonary disease) (Chronic) Constipation (Chronic) Medical History Medical History (Updated 11/20/24 @ 16:10 by Alexander Hernandez MD) Fracture of right knee region microfracture, right 18 months rehab because of cartilage defects Surgical History Surgical History (Updated 09/24/24 @ 09:55 by Tamanna Girard MA) Meningioma, spinal (2019) S/p total knee replacement, bilateral [id number] [facility] H/O midurethral sling procedure Family History Family History (Updated 09/24/24 @ 09:56 by Tamanna Girard MA) Mother Heart attack Cancer Social History Social History Smoking Status: Smoker current status unk If you are a former smoker, when did you quit? (Date/Year): 5 yrs ago How many cigarettes a day do you smoke? (20 cigarettes=1 Pk): 1 Do you dip or chew tobacco?: No Do you vape?: Yes Smoking Status Details: states she vapes nicotine Relationship: Spouse Level: Independent Do you feel safe in your home environment?: Yes Suffered physical, verbal, emotional, or financial abuse?: No History of Abuse: No Substance Use: denies use Are you sexually active?: No POLST Patient has POLST: No Review of Systems Status of ROS: unobtainable due to medical condition Exam Constitutional Intubated female HENMT normocephalic and head/scalp atraumatic Eyes PERRL Neck/C-Spine trachea midline Respiratory Intubated, breath sounds greater on the right than the left Cardiovascular normal heart rate noted and regular rhythm noted Gastrointestinal abdomen soft to palpation and nondistended Extremities No edema Neurology Intubated, unresponsive Skin skin color normal Conclusion/Plan Problem List (1) Overdose of trazodone: (2) Hyperlipidemia: Qualifiers: Hyperlipidemia type: unspecified Qualified Code(s): E78.5 - Hyperlipidemia, unspecified (3) Anxiety and depression: (4) Tardive dyskinesia: (5) COPD (chronic obstructive pulmonary disease): Qualifiers: COPD type: chronic bronchitis Chronic bronchitis type: simple Q ualified Code(s): J41.0 - Simple chronic bronchitis Plan #Trazodone overdose #Suicide attempt #Depression with anxiety #Tardive dyskinesia * Patient with a known history of mental health disorder including depression, anxiety, and subsequent tardive dyskinesia secondary to psychiatric medications found down after a approximately 16 to 18-hour. Intubated by EMS after found minimally responsive admitted to ICU currently intubated. * Per poison control, may require 24 hours of respiratory support and will need monitoring of QT * Cont vent support as needed, anticipate 24 hrs * Monitor QT * Monitor for seizures * She will need psychiatric evaluation when she is awake # HTN BP acceptable currently Monitor BP, will initiate as needed meds for blood pressure over 170 #Hyperlipidemia #Chronic pain #GERD * Defer PO meds pending improvement and extubation Lab Results Lab results reviewed: Yes 11/20/24 11:35 11/20/24 11:35 Diagnostic Imaging Results Diagnostic Imaging Results: positive Final report reviewed EKG Results EKG Interpreted Independently: Yes
[2024-11-20] MEDS ORDERED: LORazepam 2 MG/ML VIAL IVP PRN (16:12)
[2024-11-20] MEDS: SODIUM CHLORIDE FLUSH 0.9% 10 ML SYRINGE IVP SCH (17:11)
[2024-11-20] MEDS: PROPOFOL 1000 MG/100 ML 1,000 MG/100 ML BOTTLE IV SCH (17:11)
[2024-11-20] MEDS: BENZOCAINE/MENTHOL LOZENGE MM PRN (20:38)
[2024-11-20] MEDS: FAMOTIDINE 20 MG/2 ML VIAL IVP SCH (20:38)
[2024-11-20] MEDS: PHENOL THROAT SPRAY 177 ML MM PRN (20:39)
[2024-11-20] MEDS: ONDANSETRON 4 MG/2 ML VIAL IVP PRN (20:48)
[2024-11-20] MEDS: ACETAMINOPHEN 1,000 MG/100 ML 1,000 MG/100 ML BAG IV PRN (22:12)
--- NOTE | 2024-11-20 22:29 | CT Report ---
PROCEDURE: HEAD WO INDICATIONS: ALTERED MENTAL STATUS TECHNIQUE: 5 mm mm axial sections acquired of the brain, with coronal and sagittal reformats. Images became jenny ilable for review on at 9:50 PM. COMPARISON: None. FINDINGS: Image quality: Excellent. The ventricular system and cortical sulci demonstrate atrophy, consistent for patient's stated age. There are areas of hypodensity in the periventricular and subcortical white matter. There is no acut e intra or extra-axial fluid collection. No acute hemorrhage, mass lesion or midline shift. Brainst em is unremarkable. Basal ganglia calcifications are present. Globes are symmetrical. Sinuses are a erated. Osseous structures are intact. IMPRESSION: 1. No acute intracranial process. Reviewed by: Elin Rhoades MD on 11/20/2024 9:51 PM PDT Approved by: Elin Rhoades MD on 11/20/2024 9:51 PM PDT Station ID: [id number]
[2024-11-21 04:46] LABS: BASOPHILS % (AUTO) 0.2 %; HGB - HEMOGLOBIN 10.6 g/dL (12.0-16.0); LYMPHOCYTES # (AUTO) 0.9 10^3/uL (1.5-3.5); MEAN CORPUSCULAR HEMOGLOBIN 25.1 pg (27.0-31.0); MEAN CORPUSCULAR HGB CONC 31.2 g/dL (32.0-36.0); MEAN CORPUSCULAR VOLUME 80.4 fL (81.0-99.0); MEAN PLATELET VOLUME 9.5 fL (7.9-10.8); MONOCYTES # (AUTO) 1.1 10^3/uL (0.0-1.0); MONOCYTES % (AUTO) 8.6 %; NEUTROPHILS % (AUTO) 83.7 %; PLT - PLATELET COUNT 221 10^3/uL (130-450); RED BLOOD COUNT 4.23 10^6/uL (4.20-5.40); RED CELL DISTRIBUTION WIDTH 18.8 % (12.0-15.0); WHITE BLOOD COUNT 13.1 x10^3/uL (4.8-10.8)
[2024-11-21 04:58] LABS: VBG PH 7.459 (7.31-7.41)
[2024-11-21 05:04] LABS: ALBUMIN 3.5 g/dL (3.2-5.5); CALCIUM 8.2 mg/dL (8.5-10.3); CREATININE 0.7 mg/dL (0.6-1.3); MAGNESIUM 2.2 mg/dL (1.7-2.3); PHOSPHORUS 3.3 mg/dL (2.5-5.0); POTASSIUM 3.5 mmol/L (3.5-4.5)
[2024-11-21] MEDS: SODIUM CHLORIDE FLUSH 0.9% 10 ML SYRINGE IVP PRN (05:06)
[2024-11-21] MEDS: POTASSIUM CHLOR 10 MEQ/100 ML 10 MEQ/100 ML BAG IV SCH (06:31)
[2024-11-21] MEDS ORDERED: BACLOFEN 10 MG TABLET PO PRN (09:31)
[2024-11-21] MEDS: NICOTINE 21 MG PATCH TOP SCH (10:24)
[2024-11-21] MEDS: amLODIPine 5 MG TABLET PO SCH (10:24)
[2024-11-21] MEDS: ALPRAZolam 0.25 MG TABLET PO PRN (10:24)
[2024-11-21 12:52] VITALS: TEMP 99
[2024-11-21 14:19] VITALS: BP 144/84; O2SAT 97
--- NOTE | 2024-11-21 17:32 | Discharge Summary ---
Discharge Summary Admit Date: 11/20/24 Discharge Date: 11/21/24 Discharging Provider: Dr Alexander Hernandez MD DIAGNOSES Admission Diagnoses: Trazodone overdose Suicide attempt Depression with anxiety Tardive dyskinesia Hypertension Hyperlipidemia Chronic pain GERD Discharge Diagnoses with Status of Each Condition: Trazodone overdose - resolved Suicide attempt - resolved Depression with anxiety - resolved Tardive dyskinesia - Stable Hypertension - Stable Hyperlipidemia - Stable Chronic pain - Stable GERD - Stable HPI History of Present Illness: Patient is a 69-year-old female with a PMH of depression with prior suicide attempt 14 years ago (via drug overdose),GERD, HLD, HTN, tardive dyskinesia, who is brought to the ED after [place] where bystanders found her just prior to EMS arrival. EMS found her minimally responsive unable to protect her airway, and intubated her in the field and brought her to the ED. She was found nearby her car where a large number of pills and multiple medication bottles were found. Most remarkable of which was a large bottle of 300 mg trazodone tablets with most of the pills missing. It is suspected she overdosed on trazodone. Per patient's family, a suicide note was found in the patient's journal. Reportedly the patient had a fight with her ex- at around 4 PM, her daughter then heard from her by telephone at approximately 6 PM, then when she did not return home she was reported missing to the police. Her ex- was then able to track her location by her cell phone at which point they [place] of [place]. In the ED, chest x-ray was done to confirm ET tube. Routine labs were also drawn, with no significant abnormalities.CK was elevated over 700, methamphetamine and benzodiazepine screen were both positive (patient received fentanyl and Versed in the ambulance). Family was able to return to the patient's car where they found multiple bottles of pills and I was able to review her pill bottles to try to determine which she may have taken. In addition to the suspected overdose of multiple 300 mg trazodone pills she also had with her baclofen, duloxetine, gabapentin, perphenazine and amlodipine. HOSPITAL COURSE Hospital Course: The patient was admitted from the ED to the ICU on a ventilator. Patient's vent settings were successfully weaned within a relatively short period of time after admission and within several hours after admission she was successfully extubated and was able to maintain oxygen saturation on room air. She recovered from the intubation alert and oriented x 3 and was also able to recall the events that led to her suicide attempt. She was immediately tearful and regretful and expressed sorrow of the attempt and gratitude towards her safety. Her family arrived shortly after her arrival to the ED, and were able to provide context and history and very supportive and expressed dire concern over her wellbeing. Metabolic workup was unremarkable. CT head was performed confirming no acute abnormalities. And she had an uneventful first night in the hospital. By the next morning she was at her baseline state of health feeling subjectively well, and encouraged about her improvement and recovery with respect to depression. Family again arrived to visit with her and provided additional support. Her psychiatrist, Dr. Doug Solorio was kind enough to visit her in the hospital and meet with me to discuss Jerica's psychiatric history, treatment plan, and provide recommendations for steps going forward. He did not feel that she would need nor benefit from an inpatient psychiatric admission given that she was very aware and insightful regarding her suicide attempts, and regretful, and expressed no further suicidal ideation at this time. His feelings were that this was a suicide attempt secondary to situational depression given her current living situation. But she has a safety plan, and has met with the social and human services assistant to confirm this including calling her sister and her daughter should any thoughts of suicide into her mind, in addition we have confirmed that Jerica will no longer maintain custody of her medications which will be then administered by her family members. After confirming adequate and safe discharge plan as well as confirming an oncoming therapy appointment and psychiatry appointment within the next week, it was deemed to be safe for the patient to discharge home. ALLERGIES Allergies Allergy/AdvReac Type Severity Reaction Status Date / Time citalopram Allergy Respiratory Verified 11/12/24 14:10 topiramate (From Topamax) Allergy Respiratory Verified 11/12/24 14:10 ziprasidone (From Geodon) Allergy Unknown Verified 11/12/24 14:10 ciprofloxacin (From Cipro) AdvReac Unknown Verified 11/12/24 14:10 fluticasone (From Flonase) AdvReac Rash Verified 11/12/24 14:10 Sulfa (Sulfonamide AdvReac Nausea Verified 11/12/24 14:10 Antibiotics) MEDICATIONS Ambulatory Orders Medication Instructions Recorded Confirmed omeprazole 40 mg capsule,delayed 40 mg PO DAILY 05/22/13 11/12/24 release (Prilosec) venlafaxine 75 mg capsule,extended 225 mg PO DAILY 05/22/13 11/12/24 release 24 hr alprazolam 1 mg tablet (Xanax) 1 mg PO TID 01/28/18 11/12/24 amlodipine 10 mg tablet (Norvasc) 10 mg PO QDAY 09/24/24 11/12/24 atorvastatin 80 mg tablet (Lipitor) 80 mg PO QPM 09/24/24 11/12/24 baclofen 20 mg tablet 20 mg PO TID 09/24/24 11/12/24 perphenazine 8 mg tablet 8 mg PO BID 09/24/24 11/12/24 trazodone 300 mg tablet 300 mg PO QDAY 09/24/24 11/12/24 valbenazine 40 mg capsule 40 mg PO QDAY 09/24/24 11/12/24 (Ingrezza) venlafaxine 150 mg 150 mg PO BID 09/24/24 11/12/24 capsule,extended release 24 hr PHYSICAL EXAM AT DISCHARGE General Appearance: positive No acute distress and Alert Respiratory: positive No respiratory distress and Breath sounds nml; negative Wheezes Cardiovascular: positive Regular rate & rhythm, No murmur and No gallop Abdomen: positive Non-tender, No organomegaly, Nml bowel sounds and No distention Skin: positive Color nml Extremities: positive Nml appearance Neurologic/Psychiatric: positive Oriented x3, CN's nml (2-12) and Motor nml LABS 11/21/24 04:37 11/21/24 04:37 DIAGNOSTIC IMAGING Diagnostic Imaging Results: Final report reviewed and Read independently FOLLOW UP Follow Up: Follow up with Doug Solorio MD this week Keep therapy appointment on December 01 TIME SPENT Time Spent in Discharge (Minutes): 90 Discharge Plan Discharge Patient Disposition: Home, Self Care Condition: Stable Medically Cleared Date:: 11/21/24 Prescriptions: Continued venlafaxine 75 MG capsule,extended release 24hr 225 mg PO DAILY omeprazole [Prilosec] 40 MG capsule,delayed release(DR/EC) 40 mg PO DAILY alprazolam [Xanax] 1 MG tablet 1 mg PO TID amlodipine [Norvasc] 10 mg tablet 10 mg PO QDAY atorvastatin [Lipitor] 80 mg tablet 80 mg PO QPM baclofen 20 mg tablet 20 mg PO TID trazodone 300 mg tablet 300 mg PO QDAY venlafaxine 150 mg capsule,extended release 24hr 150 mg PO BID perphenazine 8 mg tablet 8 mg PO BID Ingrezza 40 mg capsule 40 mg PO QDAY Activity Restrictions: Activity as Tolerated Diet: Regular Print Language: Ecuadorean Patient Instructions: Suicide Warning Signs What Do, Depression Suicide Older Adults Stand Alone Forms: PCP List Follow-up Care: Beata Valerio ARNP [Primary Care Provider] -
[2024-11-21] MEDS ORDERED: ATORVASTATIN 40 MG TABLET PO SCH (21:00)
[2024-11-22] MEDS ORDERED: PANTOPRAZOLE 40 MG TABLET PO SCH (07:00)
== END 2024-11-21 18:55 | disposition home or self-care (01) | DRG 918 ==
LOC: ED 11:29 → ICU 13:11 → EDUNIT# 13:11 → ICU 13:16
PROVIDERS: ADMIT Family Medicine Sports Medicine; ATTEND Family Medicine Sports Medicine
DX: J96.00 Acute respiratory failure, unspecified whether with hypoxia or hypercapnia; G89.29 Other chronic pain; I95.9 Hypotension, unspecified; T43.214A Poisoning by selective serotonin and norepinephrine reuptake inhibitors, undetermined, initial encounter; J41.0 Simple chronic bronchitis; I10 Essential (primary) hypertension; K21.9 Gastro-esophageal reflux disease without esophagitis; Z79.899 Other long term (current) drug therapy; G24.01 Drug induced subacute dyskinesia; R74.8 Abnormal levels of other serum enzymes; E83.51 Hypocalcemia; F41.9 Anxiety disorder, unspecified; R40.4 Transient alteration of awareness; Z91.51 Personal history of suicidal behavior; T43.212A Poisoning by selective serotonin and norepinephrine reuptake inhibitors, intentional self-harm, initial encounter; T50.905A Adverse effect of unspecified drugs, medicaments and biological substances, initial encounter; E78.5 Hyperlipidemia, unspecified; Z87.891 Personal history of nicotine dependence; F32.A Depression, unspecified